=== PATIENT | female | born 1990 | race African-American/Black ===

== ENCOUNTER 2018-03-17 08:22 | Emergency (ER) | payer SELFPAY ==
--- NOTE | 2018-03-17 08:48 | ER ---
Nurse's Notes [facility] Name: Sudhakar uDong Age: 27 yrs Sex: Female : 1990 Arrival Date: 03/17/2018 Time: 08:25 Bed 15 Private MD: None, None Diagnosis: Dental caries Presentation: 03/17 08:32 Presenting complaint: Patient states: i went to the dentist last and i was Rx hj with amoxicillin and ibuprofen and been taking it since that day, bu my L lower tooth still aches;. Transition of care: patient was not received from another setting of care. Onset of symptoms was March 17, 2018. Risk Assessment: Do you want to hurt yourself or someone else? Patient reports no desire to harm self or others. Initial Sepsis Screen: Does the patient meet any 2 criteria? No. Patient's initial sepsis screen is negative. Does the patient have a suspected source of infection? No. Patient's initial sepsis screen is negative. Care prior to arrival: None. 08:32 Method Of Arrival: Ambulatory 08:32 Acuity: NEMESIO 4 Triage Assessment: 08:34 General: Appears in no apparent distress. uncomfortable, Behavior is calm, cooperative, hj appropriate for age. Pain: Complains of pain in L lower tooth. EENT: Reports pain in L lower tooth. 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 - Social history:: Smoking status: Patient/guardian denies using tobacco, Patient/guardian denies using alcohol. - Ebola Screening: : Patient negative for fever greater than or equal to 101.5 degrees Fahrenheit, and additional compatible Ebola Virus Disease symptoms Patient denies exposure to infectious person Patient denies travel to an Ebola-affected area in the 21 days before illness onset. - Family history:: not pertinent. Screenin:34 Abuse screen: Denies threats or abuse. Denies injuries from another. Nutritional hj screening: No deficits noted. Tuberculosis screening: No symptoms or risk factors identified. Fall Risk None identified. Assessment: 08:36 Reassessment: see triage for assessment;. Vital Signs: 08:35 BP 136 / 100; Pulse 93; Resp 18; Temp 99.0(O); Pulse Ox 99% on R/A; Weight 145.15 kg; hj Height 5 ft. 6 in. (167.64 cm); Pain 8/10; 08:56 BP 135 / 98; Pulse 92; Resp 18; Pulse Ox 100% on R/A; hj 08:35 Body Mass Index 51.65 (145.15 kg, 167.64 cm) ED Course: 08:25 Patient arrived in ED. dl4 08:26 None, None is Private Physician. dl4 08:30 Arvind Calabrese MD is Attending Physician. bubba 08:31 Gomez Cui, RN is Primary Nurse. hj 08:33 Triage completed. hj 08:35 Arm band placed on left wrist. hj 08:36 Patient has correct armband on for positive identification. Bed in low position. Call hj light in reach. Side rails up X 1. 08:48 Blaine Robison DDS is Referral Physician. bubba 08:56 No provider procedures requiring assistance completed. Patient did not have IV access hj during this emergency room visit. Administered Medications: No medications were administered Outcome: 08:48 Discharge ordered by . bubba 08:56 Discharged to home ambulatory. 08:56 Condition: stable 08:56 Discharge instructions given to patient, Instructed on discharge instructions, follow up and referral plans. medication usage, Demonstrated understanding of instructions, follow-up care, medications, Prescriptions given X 3. 08:57 Patient left the ED. Signatures: Arvind Calabrese MD MD cha Joaquin, Henry, RN RN Norm Paulino dl4
--- NOTE | 2018-03-17 08:48 | EDPHYS ---
Physician Documentation [facility] Name: Sudhakar Duong Age: 27 yrs Sex: Female : 1990 Arrival Date: 03/17/2018 Time: 08:25 Bed 15 Private MD: None, None ED Physician Arvind Calabrese HPI: 03/17 08:45 This 27 yrs old Black Female presents to ER via Ambulatory with complaints of Toothache.[facility] 08:45 The patient presents with broken tooth/teeth, pain. The problem is located in the lower bubba left second molar and lower left first molar. Onset: The symptoms/episode began/occurred 4 day(s) ago. Duration: The symptoms are continuous, and are steadily getting worse. Modifying factors: The symptoms are alleviated by nothing, the symptoms are aggravated by chewing. Associated signs and symptoms: The patient has no apparent associated signs or symptoms. Severity of symptoms: At their worst the symptoms were mild, moderate, in the emergency department the symptoms are unchanged. The patient has not experienced similar symptoms in the past. 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 - Social history:: Smoking status: Patient/guardian denies using tobacco, Patient/guardian denies using alcohol. - Ebola Screening: : Patient negative for fever greater than or equal to 101.5 degrees Fahrenheit, and additional compatible Ebola Virus Disease symptoms Patient denies exposure to infectious person Patient denies travel to an Ebola-affected area in the 21 days before illness onset. - Family history:: not pertinent. ROS: 08:45 Constitutional: Negative for fever, chills, and weight loss, Eyes: Negative for injury, bubba pain, redness, and discharge, Neck: Negative for injury, pain, and swelling, Cardiovascular: Negative for chest pain, palpitations, and edema, Respiratory: Negative for shortness of breath, cough, wheezing, and pleuritic chest pain, Abdomen/GI: Negative for abdominal pain, nausea, vomiting, diarrhea, and constipation, Back: Negative for injury and pain, : Negative for injury, bleeding, discharge, and swelling, MS/Extremity: Negative for injury and deformity, Skin: Negative for injury, rash, and discoloration, Neuro: Negative for headache, weakness, numbness, tingling, and seizure, Psych: Negative for depression, anxiety, suicide ideation, homicidal ideation, and hallucinations, Allergy/Immunology: Negative for hives, rash, and allergies, Endocrine: Negative for neck swelling, polydipsia, polyuria, polyphagia, and marked weight changes, Hematologic/Lymphatic: Negative for swollen nodes, abnormal bleeding, and unusual bruising. 08:45 ENT: Positive for dental pain. Exam: 08:45 Constitutional: This is a well developed, well nourished patient who is awake, alert, bubba and in no acute distress. Head/Face: Normocephalic, atraumatic. Eyes: Pupils equal round and reactive to light, extra-ocular motions intact. Lids and lashes normal. Conjunctiva and sclera are non-icteric and not injected. Cornea within normal limits. Periorbital areas with no swelling, redness, or edema. Neck: Trachea midline, no thyromegaly or masses palpated, and no cervical lymphadenopathy. Supple, full range of motion without nuchal rigidity, or vertebral point tenderness. No Meningismus. Chest/axilla: Normal chest wall appearance and motion. Nontender with no deformity. No lesions are appreciated. Cardiovascular: Regular rate and rhythm with a normal S1 and S2. No gallops, murmurs, or rubs. Normal PMI, no JVD. No pulse deficits. Respiratory: Lungs have equal breath sounds bilaterally, clear to auscultation and percussion. No rales, rhonchi or wheezes noted. No increased work of breathing, no retractions or nasal flaring. Abdomen/GI: Soft, non-tender, with normal bowel sounds. No distension or tympany. No guarding or rebound. No evidence of tenderness throughout. Back: No spinal tenderness. No costovertebral tenderness. Full range of motion. Skin: Warm, dry with normal turgor. Normal color with no rashes, no lesions, and no evidence of cellulitis. MS/ Extremity: Pulses equal, no cyanosis. Neurovascular intact. Full, normal range of motion. Neuro: Awake and alert, GCS 15, oriented to person, place, time, and situation. Cranial nerves II-XII grossly intact. Motor strength 5/5 in all extremities. Sensory grossly intact. Cerebellar exam normal. Normal gait. Psych: Awake, alert, with orientation to person, place and time. Behavior, mood, and affect are within normal limits. 08:45 ENT: Mouth: Oral mucosa: normal, Gums: reddened, Tongue: is normal, abscess, is not appreciated, drooling, is not appreciated. Vital Signs: 08:35 BP 136 / 100; Pulse 93; Resp 18; Temp 99.0(O); Pulse Ox 99% on R/A; Weight 145.15 kg; hj Height 5 ft. 6 in. (167.64 cm); Pain 8/10; 08:56 BP 135 / 98; Pulse 92; Resp 18; Pulse Ox 100% on R/A; hj 08:35 Body Mass Index 51.65 (145.15 kg, 167.64 cm) MDM: 08:31 Patient medically screened. [facility] 08:47 Data reviewed: vital signs, nurses notes. [facility] Administered Medications: No medications were administered Disposition: 03/17/18 08:48 Discharged to Home. Impression: Dental caries. - Condition is Stable. - Discharge Instructions: Dental Pain, Dental Pain, [id number]. - Prescriptions for Amoxicillin 500 mg Oral Capsule - take 1 capsule by ORAL route every 8 hours for 7 days; 21 tablet. Tylenol- Codeine #3 300-30 mg Oral Tablet - take 2 tablets by ORAL route every 6 hours As needed; 26 tablet. Motrin IB 200 mg Oral Tablet - take 2 tablet by ORAL route every 6 hours As needed as needed with food; 30 tablet. - Medication Reconciliation Form, Thank You Letter, Antibiotic Education, Prescription Opioid Use form. - Follow up: Private Physician; When: 2 - 3 days; Reason: Recheck today's complaints, Continuance of care, Re-evaluation by your physician. Follow up: Blaine Robison DDS; When: 2 - 3 days; Reason: Recheck today's complaints, Re-evaluation by your physician. - Problem is new. - Symptoms have improved. Signatures: Arvind Calabrese MD MD cha Joaquin, Henry, RN RN hj Corrections: (The following items were deleted from the chart) 08:57 08:48 03/17/2018 08:48 Discharged to Home. Impression: Dental caries. Condition is hj Stable. Forms are Medication Reconciliation Form, Thank You Letter, Antibiotic Education, Prescription Opioid Use. Follow up: Private Physician; When: 2 - 3 days; Reason: Recheck today's complaints, Continuance of care, Re-evaluation by your physician. Follow up: Blaine Robison; When: 2 - 3 days; Reason: Recheck today's complaints, Re-evaluation by your physician. Problem is new. Symptoms have improved. bubba
[2018-03-17 09:02] VITALS: TEMP 99
[2018-03-17 09:03] VITALS: BP 135/98; O2SAT 100
== END 2018-03-17 08:57 | disposition home or self-care (01) ==
LOC: ER 08:22
DX: K02.9 Dental caries, unspecified (principal)
CPT/HCPCS: 99282

== ENCOUNTER 2018-05-02 22:02 | Emergency (ER) | payer SELFPAY ==
[2018-05-02] MEDS ORDERED: ACETAMINOPHEN 500 MG TAB ONE (23:30)
--- NOTE | 2018-05-03 00:51 | EDPHYS ---
Physician Documentation [facility] Name: Sudhakar Duong Age: 27 yrs Sex: Female : 1990 Arrival Date: 05/02/2018 Time: 22:04 Bed Treatment Private MD: ED Physician Haris Guzman HPI: 05/02 23:45 This 27 yrs old Black Female presents to ER via Ambulatory with complaints of Flu cp Symptoms. 23:45 The patient or guardian reports cough, that is intermittent, flu symptoms, body aches, cp fever. 23:45 Onset: The symptoms/episode began/occurred yesterday. Associated signs and symptoms: cp Pertinent negatives: chest pain, diarrhea, sore throat, vomiting. Patient reports known exposure to influenza. Works at local [employer]. 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 - Social history:: Smoking status: Patient uses tobacco products, smokes one-half pack cigarettes per day. - Ebola Screening: : Patient negative for fever greater than or equal to 101.5 degrees Fahrenheit, and additional compatible Ebola Virus Disease symptoms. ROS: 05/03 00:00 Constitutional: Positive for body aches, fever, Negative for poor PO intake. cp 00:00 Eyes: Negative for injury, pain, redness, and discharge. cp 00:00 ENT: Positive for rhinorrhea, Negative for drainage from ear(s), ear pain, sore throat, difficulty swallowing, difficulty handling secretions. 00:00 Neck: Negative for pain with movement, pain at rest, stiffness. 00:00 Cardiovascular: Negative for chest pain. 00:00 Respiratory: Positive for cough, with no reported sputum, Negative for shortness of breath, wheezing. 00:00 Abdomen/GI: Negative for abdominal pain, nausea, vomiting, and diarrhea. 00:00 : Negative for urinary symptoms. 00:00 Skin: Negative for cellulitis, rash. 00:00 Neuro: Negative for altered mental status, headache, weakness. 00:00 All other systems are negative. Exam: 00:08 Constitutional: The patient appears in no acute distress, alert, awake, non-toxic, well cp developed, well nourished. 00:08 Head/Face: Normocephalic, atraumatic. cp 00:08 Eyes: Periorbital structures: appear normal, Conjunctiva: normal, no exudate, no injection, Lids and lashes: appear normal, bilaterally. 00:08 ENT: External ear(s): are unremarkable, Ear canal(s): are normal, clear, TM's: bulging, is not appreciated, bilaterally, dullness, bilaterally, erythema, is not appreciated, bilaterally, Nose: nasal drainage, that is clear, Mouth: Lips: moist, Oral mucosa: moist, Posterior pharynx: Airway: no evidence of obstruction, patent, Tonsils: no enlargement, no exudate, swelling, is not appreciated, erythema, that is mild, exudate, is not appreciated. 00:08 Neck: ROM/movement: is normal, is supple, no meningismus, no nuchal rigidity, Lymph nodes: no appreciated lymphadenopathy. 00:08 Chest/axilla: Inspection: normal, Palpation: is normal, no crepitus, no tenderness. 00:08 Cardiovascular: Rate: tachycardic, Rhythm: regular. 00:08 Respiratory: the patient does not display signs of respiratory distress, Respirations: normal, no use of accessory muscles, no retractions, no splinting, no tachypnea, labored breathing, is not present, Breath sounds: decreased breath sounds, are not appreciated, + upper airway congestion. wheezing: is not appreciated. 00:08 Abdomen/GI: Inspection: abdomen appears normal. 00:08 Back: pain, that is mild, of the diffuse, ROM is normal. 00:08 Skin: cellulitis, is not appreciated, no rash present. Vital Signs: 05/02 22:59 BP 144 / 90; Pulse 130; Resp 20; Temp 101.3(TE); Pulse Ox 95% on R/A; Pain 9/10; kl 05/03 01:18 Pulse 108; Resp 20; Temp 99.2(O); Pulse Ox 99% on R/A; fc MDM: 00:44 Patient medically screened. cp 00:50 Data reviewed: vital signs, nurses notes, lab test result(s). cp 00:50 Differential diagnosis: bronchitis, flu, URI. Antibiotic administration: Not indicated, cp the patient does not have an appreciated infiltrate. Counseling: I had a detailed discussion with the patient and/or guardian regarding: the historical points, exam findings, and any diagnostic results supporting the discharge/admit diagnosis, lab results, to return to the emergency department if symptoms worsen or persist or if there are any questions or concerns that arise at home. Response to treatment: the patient's symptoms have markedly improved after treatment, VSS. Fever resolved. Will treat with tamiflu for influenza, and as a result, I will discharge patient. 05/02 23:06 Order name: Flu mt 05/02 23:32 Order name: Influenza Screen (A EDMS Administered Medications: 05/02 23:21 Drug: Tylenol 1000 mg Route: PO; 05/03 01:18 Follow up: Response: No adverse reaction; Pain is unchanged, physician notified 01:02 Drug: Ibuprofen 800 mg Route: PO; :18 Follow up: Response: No adverse reaction; Medication administered at discharge. fc Disposition: 05/03/18 00:51 Discharged to Home. Impression: Influenza like illness. - Condition is Stable. - Discharge Instructions: Influenza, Adult. - Prescriptions for Ibuprofen 800 mg Oral Tablet - take 1 tablet by ORAL route every 8 hours As needed take with food; 30 tablet. Tamiflu 75 mg Oral Capsule - take 1 tablet by ORAL route every 12 hours for 5 days; 10 tablet. - Work release form, Medication Reconciliation Form, Thank You Letter, Antibiotic Education, Prescription Opioid Use form. - Follow up: Private Physician; When: 2 - 3 days; Reason: Recheck today's complaints. - Problem is new. - Symptoms have improved. Addendum: 05/04/2018 03:42 Co-signature as Attending Physician, Haris Guzman MD. g s Signatures: Dispatcher [employer] Fabienne Sauceda RN RN kl Chretien, Felicia, RN RN fc Page, Corey, PA PA cp Starr, Gregory, MD MD Corrections: (The following items were deleted from the chart) 05/03 01:20 00:51 05/03/2018 00:51 Discharged to Home. Impression: Influenza like illness. fc Condition is Stable. Forms are Medication Reconciliation Form, Thank You Letter, Antibiotic Education, Prescription Opioid Use. Follow up: Private Physician; When: 2 - 3 days; Reason: Recheck today's complaints. Problem is new. Symptoms have improved. cp
--- NOTE | 2018-05-03 00:51 | ER ---
Nurse's Notes [facility] Name: Sudhakar Duong Age: 27 yrs Sex: Female : 1990 Arrival Date: 05/02/2018 Time: 22:04 Bed Treatment Private MD: Diagnosis: Influenza like illness Presentation: 05/02 22:47 Presenting complaint: Patient states: cough fever x 2 days took mucinex today has had contact with a person positive for flu. 22:55 Transition of care: patient was not received from another setting of care. Onset of kl symptoms was May 01, 2018. Risk Assessment: Do you want to hurt yourself or someone else? Patient reports no desire to harm self or others. Initial Sepsis Screen: Does the patient meet any 2 criteria? Temp <36.0*C (96.8*F)) or > 38.3*C (100.9*F). Does the patient have a suspected source of infection? Yes: No. Patient's initial sepsis screen is negative. 22:55 Method Of Arrival: Ambulatory 22:55 Acuity: NEMESIO 5 05/03 01:19 Care prior to arrival: None. Triage Assessment: 05/02 22:57 General: Appears distressed, uncomfortable, obese, Behavior is calm, cooperative. Pain: Complains of pain in generalized Pain currently is 9 out of 10 on a pain scale. EENT: Nares with drainage noted. Neuro: No deficits noted. Respiratory: Reports shortness of breath on exertion cough that is productive. 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 - Social history:: Smoking status: Patient uses tobacco products, smokes one-half pack cigarettes per day. - Ebola Screening: : Patient negative for fever greater than or equal to 101.5 degrees Fahrenheit, and additional compatible Ebola Virus Disease symptoms. Screenin:49 Abuse screen: Denies threats or abuse. Nutritional screening: No deficits noted. Tuberculosis screening: No symptoms or risk factors identified. Fall Risk None identified. Assessment: 23:50 General: Appears uncomfortable, obese, Behavior is cooperative, appropriate for age, anxious. Pain: Complains of pain in body Quality of pain is described as aching, throbbing, Pain began 1 day ago. Is continuous. Neuro: Level of Consciousness is awake, alert, obeys commands, Oriented to person, place, time, situation, Appropriate for age. Cardiovascular: No deficits noted. Respiratory: Reports cough that is productive, pain with cough Breath sounds are clear bilaterally. the patient has mild shortness of breath. GI: No deficits noted. : No deficits noted. EENT: Nares with drainage noted Reports nasal congestion nasal discharge that is watery. Derm: Skin is pink, warm \T\ dry. Musculoskeletal: Circulation, motion, and sensation intact. Capillary refill < 3 seconds, Range of motion: intact in all extremities. Vital Signs: 22:59 BP 144 / 90; Pulse 130; Resp 20; Temp 101.3(TE); Pulse Ox 95% on R/A; Pain 9/10; 05/03 01:18 Pulse 108; Resp 20; Temp 99.2(O); Pulse Ox 99% on R/A; ED Course: 05/02 22:04 Patient arrived in ED. am2 22:56 Triage completed. 23:49 Arm band placed on Patient placed in an exam room, on a stretcher. 23:49 Patient has correct armband on for positive identification. Call light in reach. 23:49 No provider procedures requiring assistance completed. 05/03 00:44 [facility]fin [facility]. cp 00:44 Haris Guzman MD is Attending Physician. cp 01:20 Patient did not have IV access during this emergency room visit. Administered Medications: 05/02 23:21 Drug: Tylenol 1000 mg Route: PO; 05/03 01:18 Follow up: Response: No adverse reaction; Pain is unchanged, physician notified 01:02 Drug: Ibuprofen 800 mg Route: PO; 01:18 Follow up: Response: No adverse reaction; Medication administered at discharge. Outcome: 00:51 Discharge ordered by . cp 01:19 Discharged to home ambulatory, with family. 01:19 Condition: good 01:19 Discharge instructions given to patient, family, Instructed on discharge instructions, follow up and referral plans. medication usage, Staying hydrated and alternating Tylenol and Motrin Demonstrated understanding of instructions, follow-up care, medications, Hydration along with alternating Tylenol and Motrin Prescriptions given X 2. 01:20 Patient left the ED. fc Signatures: Fabienne Pryor RN Nidhi Jorgensen RN RN fc Page, Corey, PA PA cp Moreno, Amanda am2
[2018-05-03] MEDS ORDERED: IBUPROFEN 400 MG TAB ONE (01:12)
[2018-05-03 03:11] VITALS: BP 144/90
[2018-05-03 03:14] VITALS: TEMP 99.2; O2SAT 99
== END 2018-05-03 01:20 | disposition home or self-care (01) ==
LOC: ER 22:02
DX: J11.1 Influenza due to unidentified influenza virus with other respiratory manifestations (principal); I10 Essential (primary) hypertension; F17.210 Nicotine dependence, cigarettes, uncomplicated
CPT/HCPCS: 87804; 99283

== ENCOUNTER 2018-06-09 16:22 | Emergency (ER) | payer SELFPAY ==
--- NOTE | 2018-06-09 17:27 | EDPHYS ---
Physician Documentation [facility] Name: Sudhakar Duong Age: 27 yrs Sex: Female : 1990 Arrival Date: 06/09/2018 Time: 16:26 Bed 10 Private MD: None, None ED Physician Jus Wlof HPI: 06/09 17:24 This 27 yrs old Black Female presents to ER via Wheelchair with complaints of Knee kb Injury. 17:25 The patient presents with decreased range of motion, an injury, pain, that is acute. kb The complaints affect the left knee. Context: The problem was sustained at home, resulted from twisting of the extremity, the patient can fully bear weight, the patient is able to ambulate. Onset: The symptoms/episode began/occurred 2 day(s) ago. Modifying factors: The symptoms are alleviated by nothing. the symptoms are aggravated by movement, weight bearing, bending knee. Associated signs and symptoms: The patient has no apparent associated signs or symptoms. Treatment prior to arrival includes: no previous treatment. Severity of symptoms: At their worst the symptoms were moderate, in the emergency department the symptoms are unchanged. The patient has not experienced similar symptoms in the past. The patient has not recently seen a physician. Pt reports she twisted her knee 2 days ago and has had pain since then. Reports pain with bending knee and bearing weight. . 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 - Social history:: Smoking status: Patient uses tobacco products, smokes one-half pack cigarettes per day. - Ebola Screening: : No symptoms or risks identified at this time. ROS: 17:21 Constitutional: Negative for fever, chills, and weight loss, Cardiovascular: Negative kb for chest pain, palpitations, and edema, Respiratory: Negative for shortness of breath, cough, wheezing, and pleuritic chest pain, Abdomen/GI: Negative for abdominal pain, nausea, vomiting, diarrhea, and constipation, : Negative for injury, bleeding, discharge, and swelling, Skin: Negative for injury, rash, and discoloration, Neuro: Negative for headache, weakness, numbness, tingling, and seizure. 17:21 MS/extremity: Positive for decreased range of motion, pain, of the left knee. Exam: 17:21 Constitutional: This is a well developed, well nourished patient who is awake, alert, kb and in no acute distress. Head/Face: Normocephalic, atraumatic. Chest/axilla: Normal chest wall appearance and motion. Nontender with no deformity. No lesions are appreciated. Cardiovascular: Regular rate and rhythm with a normal S1 and S2. No gallops, murmurs, or rubs. Normal PMI, no JVD. No pulse deficits. Respiratory: Lungs have equal breath sounds bilaterally, clear to auscultation and percussion. No rales, rhonchi or wheezes noted. No increased work of breathing, no retractions or nasal flaring. Abdomen/GI: Soft, non-tender, with normal bowel sounds. No distension or tympany. No guarding or rebound. No evidence of tenderness throughout. Skin: Warm, dry with normal turgor. Normal color with no rashes, no lesions, and no evidence of cellulitis. Neuro: Awake and alert, GCS 15, oriented to person, place, time, and situation. Cranial nerves II-XII grossly intact. Motor strength 5/5 in all extremities. Sensory grossly intact. Cerebellar exam normal. Normal gait. 17:21 Musculoskeletal/extremity: Extremities: grossly normal except: noted in the left knee: pain, ROM: limited active range of motion due to pain, in the left knee, Sensation intact. Weight bearing: able to fully bear weight. Vital Signs: 16:38 Resp 16; Temp 97.6; Pulse Ox 98% on R/A; Weight 138.35 kg; Height 5 ft. 6 in. (167.64 la1 cm); Pain 8/10; 16:39 BP 135 / 98; la1 16:38 Body Mass Index 49.23 (138.35 kg, 167.64 cm) la1 MDM: 16:56 Patient medically screened. kb 17:21 Data reviewed: vital signs, nurses notes. Data interpreted: Pulse oximetry: on room air kb is 98 %. Interpretation: normal. Counseling: I had a detailed discussion with the patient and/or guardian regarding: the historical points, exam findings, and any diagnostic results supporting the discharge/admit diagnosis, radiology results, the need for outpatient follow up, a family practitioner, to return to the emergency department if symptoms worsen or persist or if there are any questions or concerns that arise at home. 06/09 16:39 Order name: Knee Left 3 View XRAY; Complete Time: 17:33 la1 06/09 17:21 Order name: [place] Wrap; Complete Time: 17:54 kb 06/09 17:21 Order name: Crutches; Complete Time: 17:55 kb Administered Medications: No medications were administered Disposition: 18:49 Co-signature as Attending Physician, Jus Wolf MD. rn Disposition: 06/09/18 17:27 Discharged to Home. Impression: Pain in left knee. - Condition is Stable. - Discharge Instructions: Knee Pain, [id number]. - Prescriptions for Diclofenac Sodium 75 mg Oral Tablet, Delayed Release (E.C.) - take 1 tablet by ORAL route 2 times per day As needed; 30 tablet. - Medication Reconciliation Form, Thank You Letter, Antibiotic Education, Prescription Opioid Use, Work release form form. - Follow up: Emergency Department; When: As needed; Reason: Worsening of condition. Follow up: Private Physician; When: 2 - 3 days; Reason: Recheck today's complaints, Continuance of care, Re-evaluation by your physician. Signatures: Dispatcher [employer] EDNadeen Cook, ENVIRONMENTAL MONITORING TECHNICIAN-C ENVIRONMENTAL MONITORING TECHNICIAN-Ckb Herlinda Nagy RN RN iw Nieto, Roman, MD MD rn Attema, Lee, RN RN la1 Corrections: (The following items were deleted from the chart) 17:23 17:21 MS/extremity: Positive for pain, of the left knee, [facility] 17:24 17:21 Musculoskeletal/extremity: Extremities: grossly normal except: noted in the left kb knee: pain, kb 18:09 17:27 06/09/2018 17:27 Discharged to Home. Impression: Pain in left knee. Condition is iw Stable. Forms are Medication Reconciliation Form, Thank You Letter, Antibiotic Education, Prescription Opioid Use. Follow up: Emergency Department; When: As needed; Reason: Worsening of condition. Follow up: Private Physician; When: 2 - 3 days; Reason: Recheck today's complaints, Continuance of care, Re-evaluation by your physician. kb
--- NOTE | 2018-06-09 17:27 | ER ---
Nurse's Notes [facility] Name: Sudhakar Duong Age: 27 yrs Sex: Female : 1990 Arrival Date: 06/09/2018 Time: 16:26 Bed 10 Private MD: None, None Diagnosis: Pain in left knee Presentation: 06/09 16:36 Presenting complaint: Patient states: I was rough housing with my cousins two days ago la1 and my left knee went one way and the rest of my leg went the other way. Transition of care: patient was not received from another setting of care. Onset of symptoms was June 09, 2018. Risk Assessment: Do you want to hurt yourself or someone else? Patient reports no desire to harm self or others. Initial Sepsis Screen: Does the patient meet any 2 criteria? No. Patient's initial sepsis screen is negative. Does the patient have a suspected source of infection? No. Patient's initial sepsis screen is negative. Care prior to arrival: None. 16:36 Method Of Arrival: Wheelchair la1 16:36 Acuity: NEMESIO 4 la1 Triage Assessment: 18:00 General: Appears in no apparent distress. Behavior is calm, cooperative. Injury iw Description:. 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 - Social history:: Smoking status: Patient uses tobacco products, smokes one-half pack cigarettes per day. - Ebola Screening: : No symptoms or risks identified at this time. Screenin:00 Abuse screen: Denies threats or abuse. Denies injuries from another. Nutritional iw screening: No deficits noted. Tuberculosis screening: No symptoms or risk factors identified. Fall Risk None identified. Assessment: 17:00 General: Appears in no apparent distress. comfortable, Behavior is calm. Pain: iw Complains of pain in left knee. Neuro: Level of Consciousness is awake, alert, obeys commands, Moves all extremities. Cardiovascular: Patient's skin is warm and dry. Respiratory: Respiratory effort is even, unlabored, Respiratory pattern is regular. Derm: Skin is intact, is healthy with good turgor. Musculoskeletal: Range of motion: limited in left knee. Vital Signs: 16:38 Resp 16; Temp 97.6; Pulse Ox 98% on R/A; Weight 138.35 kg; Height 5 ft. 6 in. (167.64 la1 cm); Pain 8/10; 16:39 BP 135 / 98; la1 16:38 Body Mass Index 49.23 (138.35 kg, 167.64 cm) la1 ED Course: 16:26 Patient arrived in ED. mr 16:26 None, None is Private Physician. mr 16:37 Triage completed. la1 16:37 Arm band placed on left wrist. la1 16:43 Nadeen Lorenzo FNP-C is PHCP. kb 16:44 Jus Wolf MD is Attending Physician. kb 16:54 Herlinda Nagy, RN is Primary Nurse. iw 17:00 Patient has correct armband on for positive identification. iw 17:17 Knee Left 3 View XRAY In Process Unspecified. EDMS 18:08 No provider procedures requiring assistance completed. Patient did not have IV access iw during this emergency room visit. Administered Medications: No medications were administered Outcome: 17:27 Discharge ordered by MD. kb 18:08 Discharged to home ambulatory, with crutches, with family. iw 18:08 Condition: good 18:08 Discharge instructions given to patient, family, Instructed on discharge instructions, follow up and referral plans. medication usage, Demonstrated understanding of instructions, follow-up care, medications, Prescriptions given X 1. 18:09 Patient left the ED. iw Signatures: Dispatcher [employer] EDCT Nadeen Lorenzo FNP-C FNP-Ckb RiveraAngella mr Herlinda Nagy, RN CHLOE Noe Meraz RN RN la1
--- NOTE | 2018-06-09 17:29 | RAD REPORT ---
EXAM DESCRIPTION: RAD - Knee Left 3 View - 06/09/2018 5:16 pm CLINICAL HISTORY: Knee pain COMPARISON: None. FINDINGS: No fracture, dislocation or periosteal reaction.Minimal joint effusion present. No joint s pace narrowing. No soft tissue abnormality. IMPRESSION: No acute bone finding. Minimal joint effusion. Clinical concerns for internal derangement or occult bony injury could be further assessed with MR im aging.
[2018-06-09 18:26] VITALS: TEMP 97.6; O2SAT 98
[2018-06-09 18:27] VITALS: BP 135/98
== END 2018-06-09 18:09 | disposition home or self-care (01) ==
LOC: ER 16:22
DX: M25.562 Pain in left knee (principal); I10 Essential (primary) hypertension; F17.210 Nicotine dependence, cigarettes, uncomplicated
CPT/HCPCS: 99283

== ENCOUNTER 2018-12-14 07:51 | Emergency (ER) | payer SELFPAY ==
[2018-12-14] MEDS ORDERED: METOCLOPRAMIDE 10 MG/2mL INJ ONE (08:29)
[2018-12-14] MEDS ORDERED: DIPHENHYDRAMINE 50 MG/ML VIAL ONE (08:30)
--- NOTE | 2018-12-14 09:15 | ER ---
Nurse's Notes [facility] Name: Sudhakar Duong Age: 28 yrs Sex: Female : 1990 Arrival Date: 12/14/2018 Time: 07:52 Bed 15 Private MD: None, None Diagnosis: Essential (primary) hypertension;Headache Presentation: 12/14 07:53 Presenting complaint: Patient states: "I was at work feeling dizzy and my head was aa5 pounding so the nurse took my blood pressure and it was 130 and they gave me metoprolol 25mg and we waiting an hour and then it was 198/160 and they gave me Clonidine about 20 minutes ago". Pt states "the only time I had high blood pressure was with the twins about 17 months ago". 07:53 Transition of care: patient was not received from another setting of care. Onset of aa5 symptoms was December 14, 2018. Risk Assessment: Do you want to hurt yourself or someone else? Patient reports no desire to harm self or others. Initial Sepsis Screen: Does the patient meet any 2 criteria? No. Patient's initial sepsis screen is negative. Does the patient have a suspected source of infection? No. Patient's initial sepsis screen is negative. Care prior to arrival: see triage note. 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 - Social history:: Smoking status: Patient uses tobacco products, smokes one-half pack cigarettes per day. - Ebola Screening: : No symptoms or risks identified at this time. Screenin:55 Abuse screen: Denies threats or abuse. Nutritional screening: No deficits noted. rb1 Tuberculosis screening: No symptoms or risk factors identified. Fall Risk None identified. Assessment: 07:55 General: Appears in no apparent distress. comfortable, obese, Behavior is calm, rb1 cooperative, Denies fever. Pain: Complains of pain in head Pain currently is 8 out of 10 on a pain scale. Pain began this morning. Neuro: Level of Consciousness is awake, alert, obeys commands, Oriented to person, place, time, situation. Neuro: Reports blurred vision dizziness, headache frontal area, tingling in bilateral hands and fingers.. Cardiovascular: Denies chest pain, Capillary refill < 3 seconds is brisk in bilateral fingers. Respiratory: Airway is patent Respiratory effort is even, unlabored, Respiratory pattern is regular, symmetrical. GI: No signs and/or symptoms were reported involving the gastrointestinal system. : No signs and/or symptoms were reported regarding the genitourinary system. Derm: Skin is dry, Skin is normal, Skin temperature is warm. Musculoskeletal: Range of motion: intact in all extremities. 07:55 General: PT. reports she was given Metoprolol and Clonidine at [place] where she works [employer] before coming to the hospital.. 08:55 Reassessment: Patient appears in no apparent distress at this time. No changes from [employer] previously documented assessment. 09:52 Reassessment: Patient appears in no apparent distress at this time. Patient and/or rb1 family updated on plan of care and expected duration. Pain level reassessed. Patient is alert, oriented x 3, equal unlabored respirations, skin warm/dry/pink. Pain 3/10 Patient states symptoms have improved. Vital Signs: 07:54 BP 167 / 118; Pulse 86; Resp 18 S; Temp 98.3(TE); Pulse Ox 97% on R/A; Weight 140.61 kg aa5 (R); Height 5 ft. 6 in. (167.64 cm) (R); Pain 8/10; 08:50 BP 126 / 100; Pulse 77; Resp 16; Pulse Ox 97% on R/A; Pain 8/10; rb1 09:50 BP 124 / 80; Pulse 77; Resp 17; Temp 98.5(O); Pulse Ox 97% ; Pain 3/10; rb1 07:54 Body Mass Index 50.03 (140.61 kg, 167.64 cm) aa5 ED Course: 07:52 Patient arrived in ED. ag5 07:52 None, None is Private Physician. ag5 07:53 Isauro Freeman PA is PHCP. jr8 07:53 Jus Wolf MD is Attending Physician. jr8 07:53 Arm band placed on Patient placed in an exam room, on a stretcher. aa5 07:55 Patient has correct armband on for positive identification. Bed in low position. Call rb1 light in reach. Side rails up X 1. monitoring analyst on. Pulse ox on. NIBP on. Warm blanket given. 08:02 Triage completed. aa5 08:28 Latrice Mayberry, RN is Primary Nurse. rb1 08:38 Inserted saline lock: 22 gauge in right antecubital area, using aseptic technique. rb1 09:55 No provider procedures requiring assistance completed. IV discontinued, intact, rb1 bleeding controlled, No redness/swelling at site. Pressure dressing applied. Administered Medications: 08:38 Drug: Benadryl 25 mg Route: IVP; Site: right antecubital; rb1 08:38 Drug: Reglan 10 mg Route: IVP; Site: right antecubital; rb1 Outcome: 09:14 Discharge ordered by . jr8 09:55 Discharged to home ambulatory. rb1 09:55 Condition: stable 09:55 Discharge instructions given to patient, Instructed on discharge instructions, follow up and referral plans. Demonstrated understanding of instructions, follow-up care, Prescriptions given X none 09:59 Patient left the ED. rb1 Signatures: Felicita Boyd, RN RN aa5 Isauro Freeman PA PA jr8 Latrice Mayberry, RN RN rb1 Gisselle Bryant 5
--- NOTE | 2018-12-14 09:15 | EDPHYS ---
Physician Documentation [facility] Name: Sudhakar Duong Age: 28 yrs Sex: Female : 1990 Arrival Date: 12/14/2018 Time: 07:52 Bed 15 Private MD: None, None ED Physician Jus Wolf HPI: 12/14 08:14 This 28 yrs old Black Female presents to ER via Ambulatory with complaints of High jr8 Blood Pressure. 08:14 The patient has elevated blood pressure and discovered this at work. Onset: The jr8 symptoms/episode began/occurred this morning. Associated signs and symptoms: Pertinent positives: dizziness, headache, Pertinent negatives: chest pain, nausea, vomiting, weakness. Severity of symptoms: At its worst the blood pressure was 167 mm Hg, in the emergency department the blood pressure is improved. Pt was at work, had a DENNISON, went to nurse, BP was "high" so they gave her 25mg metoprolol and rechecked it in an hour, still "high" so they gave 0.2mg of clonidine. 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 - Social history:: Smoking status: Patient uses tobacco products, smokes one-half pack cigarettes per day. - Ebola Screening: : No symptoms or risks identified at this time. ROS: 08:14 Constitutional: Negative for fever, chills, and weight loss, Eyes: Negative for injury, jr8 pain, redness, and discharge, ENT: Negative for injury, pain, and discharge, Neck: Negative for injury, pain, and swelling, Cardiovascular: Negative for chest pain, palpitations, and edema, Respiratory: Negative for shortness of breath, cough, wheezing, and pleuritic chest pain, Abdomen/GI: Negative for abdominal pain, nausea, vomiting, diarrhea, and constipation, Back: Negative for injury and pain, Skin: Negative for injury, rash, and discoloration. 08:14 Neuro: Positive for dizziness, headache. Exam: 08:14 Constitutional: This is a well developed, well nourished patient who is awake, alert, jr8 and in no acute distress. Head/Face: Normocephalic, atraumatic. Eyes: Pupils equal round and reactive to light, extra-ocular motions intact. Lids and lashes normal. Conjunctiva and sclera are non-icteric and not injected. Cornea within normal limits. Periorbital areas with no swelling, redness, or edema. ENT: Nares patent. No nasal discharge, no septal abnormalities noted. Tympanic membranes are normal and external auditory canals are clear. Oropharynx with no redness, swelling, or masses, exudates, or evidence of obstruction, uvula midline. Mucous membranes moist. Neck: Trachea midline, no thyromegaly or masses palpated, and no cervical lymphadenopathy. Supple, full range of motion without nuchal rigidity, or vertebral point tenderness. No Meningismus. Chest/axilla: Normal chest wall appearance and motion. Nontender with no deformity. No lesions are appreciated. Cardiovascular: Regular rate and rhythm with a normal S1 and S2. No gallops, murmurs, or rubs. Normal PMI, no JVD. No pulse deficits. Respiratory: Lungs have equal breath sounds bilaterally, clear to auscultation and percussion. No rales, rhonchi or wheezes noted. No increased work of breathing, no retractions or nasal flaring. Abdomen/GI: Soft, non-tender, with normal bowel sounds. No distension or tympany. No guarding or rebound. No evidence of tenderness throughout. Back: No spinal tenderness. No costovertebral tenderness. Full range of motion. Skin: Warm, dry with normal turgor. Normal color with no rashes, no lesions, and no evidence of cellulitis. MS/ Extremity: Pulses equal, no cyanosis. Neurovascular intact. Full, normal range of motion. 08:14 Neuro: Orientation: is normal, Mentation: is normal, Cranial nerves: CN II- XII are normal as tested, visual simons are intact. extraocular movements are intact, Cerebellar function: normal finger to nose testing, Motor: is normal, Sensation: is normal, Gait: is steady. Vital Signs: 07:54 BP 167 / 118; Pulse 86; Resp 18 S; Temp 98.3(TE); Pulse Ox 97% on R/A; Weight 140.61 kg aa5 (R); Height 5 ft. 6 in. (167.64 cm) (R); Pain 8/10; 08:50 BP 126 / 100; Pulse 77; Resp 16; Pulse Ox 97% on R/A; Pain 8/10; rb1 09:50 BP 124 / 80; Pulse 77; Resp 17; Temp 98.5(O); Pulse Ox 97% ; Pain 3/10; rb1 07:54 Body Mass Index 50.03 (140.61 kg, 167.64 cm) aa5 MDM: 07:53 Patient medically screened. jr8 09:10 Data reviewed: vital signs, nurses notes, EKG, and as a result, I will discharge jr8 patient. Data interpreted: Pulse oximetry: on room air is 97 %. Interpretation: normal. Counseling: I had a detailed discussion with the patient and/or guardian regarding: the historical points, exam findings, and any diagnostic results supporting the discharge/admit diagnosis, the presence of at least one elevated blood pressure reading (>120/80) during this emergency department visit, the need for outpatient follow up, a family practitioner. ED course: Pt DENNISON significantly improved and BP is down to 117 systolic. Pt states she feels much better. Normal neurological exam. Pt to FU with PCP for BP recheck. . 12/14 08:14 Order name: EKG; Complete Time: 08:14 8 10 08:14 Order name: EKG - Nurse/Tech; Complete Time: 08:28 8 12/14 08:14 Order name: SL; Complete Time: 08:47 Administered Medications: 08:38 Drug: Benadryl 25 mg Route: IVP; Site: right antecubital; rb1 08:38 Drug: Reglan 10 mg Route: IVP; Site: right antecubital; rb1 Disposition: 10:09 Co-signature as Attending Physician, Jus Wolf MD. rn Disposition: 12/14/18 09:14 Discharged to Home. Impression: Essential (primary) hypertension, Headache. - Condition is Stable. - Discharge Instructions: General Headache Without Cause, Hypertension. - Medication Reconciliation Form, Thank You Letter form. - Follow up: Private Physician; When: 1 week; Reason: Recheck today's complaints, Re-evaluation by your physician. - Problem is new. - Symptoms are resolved. Signatures: Jus Wolf MD MD rn Calderon, Audri RN RN aa5 Isauro Freeman PA PA jr8 Latrice Mayberry, RN RN rb1 Corrections: (The following items were deleted from the chart) 09:59 09:14 12/14/2018 09:14 Discharged to Home. Impression: Essential (primary) rb1 hypertension; Headache. Condition is Stable. Forms are Medication Reconciliation Form, Thank You Letter, Antibiotic Education, Prescription Opioid Use. Follow up: Private Physician; When: 1 week; Reason: Recheck today's complaints, Re-evaluation by your physician. Problem is new. Symptoms are resolved. jr8
[2018-12-14 10:04] VITALS: BP 167/118; TEMP 98.3; O2SAT 97
--- NOTE | 2018-12-15 06:18 | EKG ---
Test Date: 2018-12-14 Test Time: 08:22:40 Java Software: SAHIL MEASUREMENT RESULTS: Intervals: Rate: 72 DE: 170 QRSD: 100 QT: 422 QTc: 462 Ben Bolt: P: 36 DE: 170 QRS: 22 T: 21 INTERPRETIVE STATEMENTS: Normal sinus rhythm normal ECG No previous ECG available for comparison Electronically Signed On 12-15-18 06:17:55 CDT by Black Kim
== END 2018-12-14 09:59 | disposition home or self-care (01) ==
LOC: ER 07:51
DX: I10 Essential (primary) hypertension (principal); R51 Headache; F17.210 Nicotine dependence, cigarettes, uncomplicated
CPT/HCPCS: 93005; 96374; 96375; 99284; J1200; J2765

== ENCOUNTER 2019-11-15 19:56 | Emergency (ER) | payer SELFPAY ==
[2019-11-15] MEDS ORDERED: KETOROLAC 30 MG/ML INJ ONE (20:18)
--- NOTE | 2019-11-15 21:18 | ER ---
Nurse's Notes [facility] Name: Sudhakar Duong Age: 29 yrs Sex: Female : 1990 Arrival Date: 11/15/2019 Time: 19:59 Bed 5 Private MD: Diagnosis: Hypertensive urgency;Headache Presentation: 11/14 20:00 Chief complaint: Patient states: Headache that began 45 min ago with light sensitivity; lp1 states having a nose bleed; Hx of HTN; States aunt took BP at home and was reading 200/130. 20:00 Coronavirus screen: Client denies travel out of the [place] in the last 14 days. At this lp1 time, the client does not indicate any symptoms associated with coronavirus-19. Ebola Screen: No symptoms or risks identified at this time. Initial Sepsis Screen: Does the patient meet any 2 criteria? No. Patient's initial sepsis screen is negative. Does the patient have a suspected source of infection? No. Patient's initial sepsis screen is negative. Risk Assessment: Do you want to hurt yourself or someone else? Patient reports no desire to harm self or others. Onset of symptoms was November 15, 2019. 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 - Social history:: Smoking status: Patient reports the use of cigarette tobacco products, smokes one-half pack cigarettes per day. Screenin:11 Abuse screen: Denies threats or abuse. Denies injuries from another. Nutritional lp1 screening: No deficits noted. Tuberculosis screening: No symptoms or risk factors identified. Fall Risk None identified. Assessment: 20:11 General: Appears in no apparent distress. comfortable, Behavior is calm, cooperative. mg2 Pain: Complains of pain in frontal head Pain does not radiate. Pain currently is 8 out of 10 on a pain scale. Quality of pain is described as aching, Pain began gradually, Is intermittent. Neuro: Level of Consciousness is awake, alert, obeys commands, Oriented to person, place, time, situation. Neuro: Reports headache frontal area. Cardiovascular: Capillary refill < 3 seconds Patient's skin is warm and dry. Respiratory: Airway is patent Respiratory effort is even, unlabored, Respiratory pattern is regular, symmetrical. GI: No signs and/or symptoms were reported involving the gastrointestinal system. : No signs and/or symptoms were reported regarding the genitourinary system. EENT: No signs and/or symptoms were reported regarding the EENT system. Derm: Skin is intact, is healthy with good turgor, Skin is pink, warm \T\ dry. normal. Musculoskeletal: Circulation, motion, and sensation intact. Capillary refill < 3 seconds. 20:53 Reassessment: Patient appears in no apparent distress at this time. Patient and/or mg2 family updated on plan of care and expected duration. Pain level reassessed. Patient is alert, oriented x 3, equal unlabored respirations, skin warm/dry/pink. 21:19 Reassessment: patient refused CT scan because she is claustrophobic and she feels mg2 better after the toradol and her blood pressure is better Patient denies pain at this time. Patient states feeling better. Patient states symptoms have improved. Vital Signs: 20:00 BP 163 / 111; Pulse 87; Resp 20; Temp 99(TE); Pulse Ox 99% on R/A; Weight 141.52 kg lp1 (R); Height 5 ft. 6 in. (167.64 cm); Pain 10/10; 20:00 BP 150 / 102; Pulse 89; Resp 17 S; Pulse Ox 99% on R/A; ca1 20:49 BP 145 / 96; Pulse 87; Resp 16 S; Pulse Ox 97% on R/A; ca1 21:11 BP 128 / 99; Pulse 82; Resp 18; Pulse Ox 98% on R/A; ea 20:00 Body Mass Index 50.36 (141.52 kg, 167.64 cm) lp1 Amador Coma Score: 21:39 Eye Response: spontaneous(4). Verbal Response: oriented(5). Motor Response: obeys tw4 commands(6). Total: 15. ED Course: 19:59 Patient arrived in ED. mg2 20:00 Ead Bonilla, CHLOE is Primary Nurse. ca1 20:07 Kevin Koch MD is Attending Physician. tw4 20:09 Triage completed. lp1 20:09 Arm band placed on. lp1 20:12 Patient has correct armband on for positive identification. Pulse ox on. NIBP on. Door mg2 closed. Warm blanket given. 20:12 No provider procedures requiring assistance completed. Inserted saline lock: 20 gauge mg2 in right antecubital area, using aseptic technique. 21:20 IV discontinued, intact, bleeding controlled, No redness/swelling at site. Pressure mg2 dressing applied. Administered Medications: 20:11 Drug: TORadol 30 mg Route: IVP; Site: right antecubital; mg2 20:54 Follow up: Response: No adverse reaction mg2 21:19 Not Given (Hemodynamic Parameters): hydrALAZINE 10 mg IV at per protocol once mg2 Outcome: 21:18 Discharge ordered by . tw4 21:21 Discharged to home ambulatory. mg2 21:21 Condition: stable 21:21 Discharge instructions given to patient, Instructed on discharge instructions, follow up and referral plans. medication usage, Demonstrated understanding of instructions, follow-up care, medications, Prescriptions given X 2. 21:27 Patient left the ED. mg2 Signatures: Sandhya Snell RN RN lp1 Erlinda Abbott RN Kevin Martinez ea, MD MD tw4 Kelton Retana, CHLOE RN mg2 Eda Bonilla RN RN ca1
--- NOTE | 2019-11-15 21:18 | EDPHYS ---
Physician Documentation [facility] Name: Sudhakar Duong Age: 29 yrs Sex: Female : 1990 Arrival Date: 11/15/2019 Time: 19:59 Bed 5 Private MD: ED Physician Kevin Koch HPI: 11/14 21:39 This 29 yrs old Black Female presents to ER via EMS with complaints of headache. tw4 21:39 The patient complains of pain to the forehead. The patient describes the headache as tw4 aching. Onset: The symptoms/episode began/occurred just prior to arrival, today. Associated signs and symptoms: The patient has no apparent associated signs or symptoms. Severity of symptoms: At its worst the pain was moderate. The symptoms are alleviated by nothing. the symptoms are aggravated by nothing. The patient has not experienced similar symptoms in the past. 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 - Social history:: Smoking status: Patient reports the use of cigarette tobacco products, smokes one-half pack cigarettes per day. ROS: 21:39 Constitutional: Negative for fever, chills, and weight loss, Eyes: Negative for injury, tw4 pain, redness, and discharge, Cardiovascular: Negative for chest pain, palpitations, and edema, Respiratory: Negative for shortness of breath, cough, wheezing, and pleuritic chest pain, Abdomen/GI: Negative for abdominal pain, nausea, vomiting, diarrhea, and constipation, Back: Negative for injury and pain, MS/Extremity: Negative for injury and deformity, Skin: Negative for injury, rash, and discoloration. 21:39 Neuro: Positive for headache, Negative for altered mental status, dizziness, gait disturbance, seizure activity, syncope, near syncope, tinnitus, tremor, visual changes. Exam: 21:39 Constitutional: This is a well developed, well nourished patient who is awake, alert, tw4 and in no acute distress. Head/Face: Normocephalic, atraumatic. Chest/axilla: Normal chest wall appearance and motion. Nontender with no deformity. No lesions are appreciated. Cardiovascular: Regular rate and rhythm with a normal S1 and S2. No gallops, murmurs, or rubs. Normal PMI, no JVD. No pulse deficits. Respiratory: Lungs have equal breath sounds bilaterally, clear to auscultation and percussion. No rales, rhonchi or wheezes noted. No increased work of breathing, no retractions or nasal flaring. Abdomen/GI: Soft, non-tender, with normal bowel sounds. No distension or tympany. No guarding or rebound. No evidence of tenderness throughout. Back: No spinal tenderness. No costovertebral tenderness. Full range of motion. MS/ Extremity: Pulses equal, no cyanosis. Neurovascular intact. Full, normal range of motion. Neuro: Awake and alert, GCS 15, oriented to person, place, time, and situation. Cranial nerves II-XII grossly intact. Motor strength 5/5 in all extremities. Sensory grossly intact. Cerebellar exam normal. Normal gait. Vital Signs: 20:00 BP 163 / 111; Pulse 87; Resp 20; Temp 99(TE); Pulse Ox 99% on R/A; Weight 141.52 kg lp1 (R); Height 5 ft. 6 in. (167.64 cm); Pain 10/10; 20:00 BP 150 / 102; Pulse 89; Resp 17 S; Pulse Ox 99% on R/A; ca1 20:49 BP 145 / 96; Pulse 87; Resp 16 S; Pulse Ox 97% on R/A; ca1 21:11 BP 128 / 99; Pulse 82; Resp 18; Pulse Ox 98% on R/A; ea 20:00 Body Mass Index 50.36 (141.52 kg, 167.64 cm) lp1 [place] Coma Score: 21:39 Eye Response: spontaneous(4). Verbal Response: oriented(5). Motor Response: obeys tw4 commands(6). Total: 15. MDM: 20:07 Patient medically screened. tw4 21:39 Differential diagnosis: hypertensive headache, migraine, sinusitis, tension headache. tw4 Data reviewed: vital signs, nurses notes. Counseling: I had a detailed discussion with the patient and/or guardian regarding: the historical points, exam findings, and any diagnostic results supporting the discharge/admit diagnosis. Medication response: Special discussion: I discussed with the patient/guardian in detail that at this point there is no indication for admission to the hospital. It is understood, however, that if the symptoms persist or worsen the patient needs to return immediately for re-evaluation. Administered Medications: 20:11 Drug: TORadol 30 mg Route: IVP; Site: right antecubital; mg2 20:54 Follow up: Response: No adverse reaction mg2 21:19 Not Given (Hemodynamic Parameters): hydrALAZINE 10 mg IV at per protocol once mg2 Disposition: 11/15/19 21:18 Discharged to Home. Impression: Hypertensive urgency, Headache. - Condition is Stable. - Discharge Instructions: Tension Headache, Adult, Hypertension. - Prescriptions for Ibuprofen 800 mg Oral Tablet - take 1 tablet by ORAL route every 12 hours As needed take with food; 20 tablet. Norvasc 5 mg Oral Tablet - take 1 tablet by ORAL route once daily; 20 tablet. - Medication Reconciliation Form, Thank You Letter, Antibiotic Education, Prescription Opioid Use form. - Follow up: Private Physician; When: Upon discharge from the Emergency Department; Reason: Recheck today's complaints, Continuance of care, Re-evaluation by your physician. - Problem is new. - Symptoms have improved. Signatures: Dispatcher [employer] EDMS Sandhya Snell RN RN lp1 Kevin Koch MD MD tw4 Kelton Retana RN RN mg2 Corrections: (The following items were deleted from the chart) 21:27 21:18 11/15/2019 21:18 Discharged to Home. Impression: Hypertensive urgency; Headache. mg2 Condition is Stable. Forms are Medication Reconciliation Form, Thank You Letter, Antibiotic Education, Prescription Opioid Use. Follow up: Private Physician; When: Upon discharge from the Emergency Department; Reason: Recheck today's complaints, Continuance of care, Re-evaluation by your physician. Problem is new. Symptoms have improved. tw4
[2019-11-16 18:51] VITALS: TEMP 99
[2019-11-16 18:54] VITALS: BP 128/99; O2SAT 98
== END 2019-11-15 21:27 | disposition home or self-care (01) ==
LOC: MERGE 19:56 → ER 19:56
DX: I16.0 Hypertensive urgency (principal); I10 Essential (primary) hypertension; F17.210 Nicotine dependence, cigarettes, uncomplicated
CPT/HCPCS: 96374; 99284

== ENCOUNTER 2020-01-27 18:05 | Emergency (ER) | payer SELFPAY ==
[2020-01-27] MEDS ORDERED: MORPHINE 4 MG/ML SYR ONE (18:36)
[2020-01-27] MEDS ORDERED: ONDANSETRON 4 MG/2 ML VIAL ONE (18:36)
--- NOTE | 2020-01-27 19:26 | RAD REPORT ---
EXAM DESCRIPTION: RAD - Foot Left 3 View - 01/27/2020 7:15 pm CLINICAL HISTORY: PAIN COMPARISON: No comparisons FINDINGS: Mild soft tissue swelling is seen along the dorsum of the forefoot. No acute fracture or d islocation is seen.
--- NOTE | 2020-01-27 19:27 | RAD REPORT ---
EXAM DESCRIPTION: RAD - Tib Fib Left - 01/27/2020 7:15 pm CLINICAL HISTORY: PAIN COMPARISON: No comparisons FINDINGS: Soft tissue swelling is seen about the ankle. No acute fracture or dislocation is seen. Sm all calcaneal spurs are evident.
[2020-01-27] MEDS ORDERED: HYDROCODONE/APAP 10/325 TAB ONE (19:29)
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
[2020-01-28 06:35] VITALS: BP 130/80; TEMP 98; O2SAT 99
== END 2020-01-27 20:59 | disposition home or self-care (01) ==
LOC: ER 18:05
DX: S87.82XA Crushing injury of left lower leg, initial encounter (principal); S93.602A Unspecified sprain of left foot, initial encounter; X58.XXXA Exposure to other specified factors, initial encounter; Y93.9 Activity, unspecified; Y92.9 Unspecified place or not applicable; E66.9 Obesity, unspecified; I10 Essential (primary) hypertension; F17.210 Nicotine dependence, cigarettes, uncomplicated
CPT/HCPCS: 96374; 96375; 99285; G0390; J2405

== ENCOUNTER 2022-09-13 19:58 | Emergency (ER) | payer SELFPAY ==
[2022-09-13] MEDS ORDERED: DIPHENHYDRAMINE 50 MG/ML VIAL ONE (20:29)
[2022-09-13] MEDS ORDERED: NA CHLORIDE 0.9% 1,000 ML ONE (20:29)
[2022-09-13] MEDS ORDERED: METOCLOPRAMIDE 10 MG/2mL INJ ONE (20:29)
[2022-09-13] MEDS ORDERED: KETOROLAC 30 MG/ML INJ ONE (20:29)
[2022-09-13 20:47] LABS: Absolute Lymphocytes (CBC) 2.4 K/uL (0.7-4.9); Hematocrit 34.7 % (36.0-45.0); MCV 75.7 fL (80-100); MPV 8.7 fL (7.6-11.3); RBC Red Blood Cell Count 4.59 M/uL (3.86-4.86)
--- NOTE | 2022-09-13 21:05 | RAD REPORT ---
EXAM DESCRIPTION: CT - Head Brain Wo Cont - 09/13/2022 8:37 pm CLINICAL HISTORY: Headache COMPARISON: none TECHNIQUE: Computed axial tomography of the head was obtained. IV contrast was not requested. All CT scans are performed using dose optimization technique as appropriate and may include automated exposure control or mA/KV adjustment according to patient size. FINDINGS: An intracranial bleed is not seen The ventricles are normal in caliber Empty sella turcica No significant hypodense areas within the brain visualized No extra-axial fluid collection is noted. Fluid within the sinuses/ mastoids is not seen IMPRESSION: No acute intracranial abnormality is seen If patient's symptoms persist MRI of the brain would be recommended
[2022-09-13 21:13] LABS: Albumin 3.5 g/dL (3.4-5.0); Bilirubin Total 0.3 mg/dL (0.2-1.0); Potassium 3.6 mEq/L (3.5-5.1); Protein, Total 7.1 g/dL (6.4-8.2)
--- NOTE | 2022-09-13 22:24 | ER ---
Nurse's Notes [facility] Name: Sudhakar Duong Age: 31 yrs Sex: Female : 1990 Arrival Date: 09/13/2022 Time: 19:58 Bed 2 Private MD: Diagnosis: Tension-type headache;Essential (primary) hypertension Presentation: 09/13 20:10 Chief complaint: Patient states: Headache onset today at 1500. Pt states, "I think it cm10 is my blood pressure." Pt also states that she has HTN but has not taken her medicine. Coronavirus screen: Vaccine status: Patient reports being unvaccinated. Ebola Screen: No symptoms or risks identified at this time. Initial Sepsis Screen: Does the patient meet any 2 criteria? No. Patient's initial sepsis screen is negative. Does the patient have a suspected source of infection? No. Patient's initial sepsis screen is negative. Risk Assessment: Do you want to hurt yourself or someone else? Patient reports no desire to harm self or others. Onset of symptoms was September 13, 2022. 20:10 Method Of Arrival: Ambulatory cm10 20:10 Acuity: NEMESIO 3 cm10 Triage Assessment: 20:13 Headache History: The patient has had previous headaches and this one is different than cm10 previous episodes. General: Appears in no apparent distress. uncomfortable, Behavior is calm, cooperative. Pain: Complains of pain in head Pain currently is 9 out of 10 on a pain scale. Pain began 4 hours ago. Also complains of photophobia. Neuro: No deficits noted. Level of Consciousness is awake, alert, Oriented to person, place, time, situation, Reports headache. Respiratory: No deficits noted. Airway is patent Respiratory effort is even, unlabored, Respiratory pattern is regular, symmetrical. Historical: - Allergies: 20:12 No Known Drug Allergies; cm10 - Home Meds: 21:30 amlodipine oral [Active]; rv - PMHx: 20:12 gestational hypertension; Hypertension; cm10 - PSHx: 20:12 tubal; cm10 - Immunization history:: Adult Immunizations unknown. - Social history:: Smoking status: Patient reports the use of cigarette tobacco products, smokes one-half pack cigarettes per day. - Family history:: not pertinent. Screenin:30 [facility] ED Fall Risk Assessment (Adult) History of falling in the last 3 months, rv including since admission No falls in past 3 months (0 pts) Confusion or Disorientation No (0 pts) Intoxicated or Sedated No (0 pts) Impaired Gait No (0 pts) Mobility Assist Device Used No (0 pt) Altered Elimination No (0 pt) Score/Fall Risk Level 0 - 2 = Low Risk Oriented to surroundings, Maintained a safe environment, Educated pt \\T\\ family on fall prevention, incl call for assistance when getting out of bed, Assessed \\T\\ reinforced patient's understanding of fall precautions, Provided non-skid footwear, Hourly rounding (assess needs \\T\\ fall precautionary measures) done, Used ambulatory aids as needed (educated on \\T\\ assisted with), Used gait belt as appropriate. Abuse screen: Denies threats or abuse. Denies injuries from another. 21:30 Nutritional screening: No deficits noted. Tuberculosis screening: No symptoms or risk rv factors identified. Assessment: 21:30 General: Appears uncomfortable, Behavior is calm, cooperative. rv 21:30 Pain: Complains of pain in head. Neuro: Level of Consciousness is awake, alert, obeys rv commands, Oriented to person, place, time, situation, Reports headache. Cardiovascular: Capillary refill < 3 seconds. Respiratory: Airway is patent Respiratory effort is even, unlabored. 22:43 Reassessment: Patient appears in no apparent distress at this time. Patient and/or rv family updated on plan of care and expected duration. Pain level reassessed. Patient is alert, oriented x 3, equal unlabored respirations, skin warm/dry/pink. Vital Signs: 20:10 BP 164 / 102; Pulse 84; Resp 16; Temp 98.1; Pulse Ox 100% on R/A; Weight 137.44 kg (R); cm10 Height 5 ft. 7 in. (R); Pain 9/10; 22:40 BP 140 / 98; Pulse 83; Resp 17 S; Pulse Ox 100% on R/A; lg3 20:10 Body Mass Index 47.46 (137.44 kg, 170.18 cm) cm10 20:10 Pain Scale: Adult cm10 [place] Coma Score: 22:21 Eye Response: spontaneous(4). Motor Response: obeys commands(6). Verbal Response: sp4 oriented(5). Total: 15. ED Course: 20:03 Patient arrived in ED. ag3 20:07 Moody Arias MD is Attending Physician. sp4 20:08 [facility]antar [facility] sb4 20:12 Triage completed. cm10 20:14 Arm band placed on Patient placed in an exam room, on a stretcher. cm10 20:19 Lux Oakley, RN is Primary Nurse. rv 20:29 CBC with Diff Sent. rv 20:29 CMP Sent. rv 20:29 Lipase Sent. rv 20:30 Inserted saline lock: 20 gauge in right antecubital area, using aseptic technique. oe Blood collected. 20:39 CT Head Brain wo Cont In Process Unspecified. EDMS 21:30 Patient has correct armband on for positive identification. rv 21:30 Client placed on continuous cardiac and pulse oximetry monitoring. NIBP monitoring rv applied. 22:23 Cesar Andino MD is Referral Physician. sp4 22:44 No provider procedures requiring assistance completed. IV discontinued, intact, rv bleeding controlled, No redness/swelling at site. Pressure dressing applied. Administered Medications: 20:29 Drug: metoCLOPramide IVP 10 mg Route: IVP; Site: right antecubital; rv 22:45 Follow up: Response: No adverse reaction; Marked relief of symptoms rv 20:29 Drug: diphenhydrAMINE IVP 25 mg Route: IVP; Site: right antecubital; rv 22:45 Follow up: Response: No adverse reaction; Marked relief of symptoms rv 20:29 Drug: Ketorolac IVP 30 mg Route: IVP; Site: right antecubital; rv 22:45 Follow up: Response: No adverse reaction; Marked relief of symptoms rv 20:29 Drug: NS 0.9% IV 1000 ml Route: IV; Rate: 1 bolus; Site: right antecubital; rv 22:45 Follow up: IV Status: Completed infusion; IV Intake: 1000ml rv 22:40 Drug: Labetalol PO 200 mg Route: PO; lg3 22:45 Follow up: Response: Medication administered at discharge. rv Medication: 22:44 VIS not applicable for this client. rv Intake: 22:45 IV: 1000ml; Total: 1000ml. rv Outcome: 22:24 Discharge ordered by . sp4 22:45 Discharged to home ambulatory. rv 22:45 Condition: improved 22:45 Discharge instructions given to patient, Instructed on discharge instructions, follow up and referral plans. medication usage, Demonstrated understanding of instructions, follow-up care, medications, Prescriptions given X 2. 22:46 Patient left the ED. rv Signatures: Dispatcher [employer] EDWY Colton Sanchez Ronaldo, RN RN rv Lay Cole Lacie, RN RN lg3 Renu Alcantar, PA-C PA-C [id number] Moody Arias MD MD sp4 Lexie Moody RN RN cm10
--- NOTE | 2022-09-13 22:24 | EDPHYS ---
Physician Documentation [facility] Name: Sudhakar Duong Age: 31 yrs Sex: Female : 1990 Arrival Date: 09/13/2022 Time: 19:58 Bed 2 Private MD: ED Physician Moody Arias HPI: 09/13 20:07 This 31 yrs old Black Female presents to ER via Unassigned with complaints of Headache. sp4 20:15 31-year-old female presents with a cute onset of moderate to severe global headache sp4 starting at 3 PM today. Patient reported concurrent feeling of dizziness and nausea and generalized weakness. Patient's headaches labetalol generally but has been out of it. Patient states she does have history of headaches but this is the first truly severe headache and it feels unusual. Patient denied lateralizing weakness. . Historical: - Allergies: 20:12 No Known Drug Allergies; cm10 - Home Meds: 21:30 amlodipine oral [Active]; rv - PMHx: 20:12 gestational hypertension; Hypertension; cm10 - PSHx: 20:12 tubal; cm10 - Immunization history:: Adult Immunizations unknown. - Social history:: Smoking status: Patient reports the use of cigarette tobacco products, smokes one-half pack cigarettes per day. - Family history:: not pertinent. ROS: 20:15 Constitutional: Negative for fever, chills, and weight loss, Eyes: Negative for injury, sp4 pain, redness, and discharge, ENT: Negative for injury, pain, and discharge, Neck: Negative for injury, pain, and swelling, Cardiovascular: Negative for chest pain, palpitations, and edema, Respiratory: Negative for shortness of breath, cough, wheezing, and pleuritic chest pain, Abdomen/GI: Negative for abdominal pain, nausea, vomiting, diarrhea, and constipation, Back: Negative for injury and pain, Neuro: Negative for numbness, tingling, and seizure, positive for headache and generalized weakness, negative for lateralizing weakness Psych: Negative for depression, anxiety. Exam: 20:15 Constitutional: This is a well developed, well nourished patient who is awake, alert, sp4 and in no acute distress. Head/Face: Normocephalic, atraumatic. Eyes: Pupils equal round and reactive to light, extra-ocular motions intact. Lids and lashes normal. Conjunctiva and sclera are not injected. Cornea within normal limits. Periorbital areas with no swelling, redness, or edema. ENT: Nares patent. No nasal discharge, no septal abnormalities noted. Tympanic membranes are normal and external auditory canals are clear. Oropharynx with no redness, swelling, or masses, exudates, or evidence of obstruction, uvula midline. Mucous membranes moist. Neck: Trachea midline, no thyromegaly or masses palpated, and no cervical lymphadenopathy. Supple, full range of motion without nuchal rigidity, or vertebral point tenderness. Chest/axilla: Normal chest wall appearance and motion. Nontender with no deformity. No lesions are appreciated. Cardiovascular: Regular rate and rhythm with a normal S1 and S2. No gallops, murmurs, or rubs. Normal PMI, no JVD. No pulse deficits. Respiratory: Lungs have equal breath sounds bilaterally, clear to auscultation and percussion. No rales, rhonchi or wheezes noted. No increased work of breathing, no retractions or nasal flaring. Abdomen/GI: Soft, non-tender, with normal bowel sounds. No distension or tympany. No guarding or rebound. No evidence of tenderness throughout. Back: No spinal tenderness. No costovertebral tenderness. Skin: Warm, dry with normal turgor. Normal color with no rashes, no lesions, and no evidence of cellulitis. MS/ Extremity: Pulses equal, no cyanosis. Neurovascular intact. Full, normal range of motion. Neuro: Awake and alert, GCS 15, oriented to person, place, time, and situation. Cranial nerves II-XII grossly intact. Motor strength 5/5 in all extremities. Sensory grossly intact. Psych: Awake, alert, with orientation to person, place and time. Behavior, mood, and affect are within normal limits Vital Signs: 20:10 BP 164 / 102; Pulse 84; Resp 16; Temp 98.1; Pulse Ox 100% on R/A; Weight 137.44 kg (R); cm10 Height 5 ft. 7 in. (R); Pain 9/10; 22:40 BP 140 / 98; Pulse 83; Resp 17 S; Pulse Ox 100% on R/A; lg3 20:10 Body Mass Index 47.46 (137.44 kg, 170.18 cm) cm10 20:10 Pain Scale: Adult cm10 Bedford Coma Score: 22:21 Eye Response: spontaneous(4). Motor Response: obeys commands(6). Verbal Response: sp4 oriented(5). Total: 15. MDM: 20:08 Patient medically screened. sb4 22:21 Differential diagnosis: epidural hematoma, hypoglycemia, migraine, tension headache, sp4 vasomotor headache. Data reviewed: vital signs, nurses notes, old medical records, lab test result(s), CBC, electrolytes, hepatic panel, radiologic studies, CT scan. Consideration of Admission/Observation Escalation of care including admission/observation considered. ED course: CT head is unremarkable, patient is noted to be hypertensive, she is at this time noncompliant with labetalol. Will prescribe labetalol 100 mg p.o. twice daily for 30 days and was advised to follow-up with Dr. Andino with internal medicine for hypertension management. . 09/13 20:14 Order name: CBC with Diff; Complete Time: 22:18 sp4 09/13 20:14 Order name: CMP; Complete Time: 22:18 sp4 09/13 20:14 Order name: Lipase; Complete Time: 22:18 sp4 09/13 20:15 Order name: CT Head Brain wo Cont; Complete Time: 22:18 sp4 09/13 20:14 Order name: IV Saline Lock; Complete Time: 20:29 sp4 09/13 20:14 Order name: Labs collected and sent; Complete Time: 20:29 sp4 Administered Medications: 20:29 Drug: metoCLOPramide IVP 10 mg Route: IVP; Site: right antecubital; rv 22:45 Follow up: Response: No adverse reaction; Marked relief of symptoms rv 20:29 Drug: diphenhydrAMINE IVP 25 mg Route: IVP; Site: right antecubital; rv 22:45 Follow up: Response: No adverse reaction; Marked relief of symptoms rv 20:29 Drug: Ketorolac IVP 30 mg Route: IVP; Site: right antecubital; rv 22:45 Follow up: Response: No adverse reaction; Marked relief of symptoms rv 20:29 Drug: NS 0.9% IV 1000 ml Route: IV; Rate: 1 bolus; Site: right antecubital; rv 22:45 Follow up: IV Status: Completed infusion; IV Intake: 1000ml rv 22:40 Drug: Labetalol PO 200 mg Route: PO; lg3 22:45 Follow up: Response: Medication administered at discharge. rv Disposition Summary: 09/13/22 22:24 Discharge Ordered Location: Home sp4 Problem: new sp4 Symptoms: have improved sp4 Condition: Stable sp4 Diagnosis - Tension-type headache sp4 - Essential (primary) hypertension sp4 Followup: sp4 - With: Cesar Andino MD - When: 7 - 10 days - Reason: Recheck today's complaints Discharge Instructions: - Discharge Summary Sheet sp4 - Managing Your Hypertension sp4 Forms: - [email or web address] sp4 Prescriptions: - Fioricet 50-300-40 mg Oral capsule - take 1 capsule by ORAL route every 6 hours PRN headache; 30 capsule; Refills: sp4 0, Product Selection Permitted - labetalol 200 mg Oral tablet - take 1 tablet by ORAL route every 12 hours; 60 tablet; Refills: 0, Product sp4 Selection Permitted Signatures: Dispatcher [employer] Lux Chen, RN RN rv Lisa Coffman RN RN lg3 Renu Alcantar, PAArianaC PALian urena4 Moody Arias MD MD sp4 Lexie Moody, RN RN cm10
[2022-09-13] MEDS ORDERED: LABETALOL HCL 100 MG TAB ONE (22:36)
[2022-09-13 23:17] VITALS: TEMP 98.1; O2SAT 100
[2022-09-13 23:18] VITALS: BP 140/98
== END 2022-09-13 22:46 | disposition home or self-care (01) ==
LOC: ER 19:58
DX: G44.209 Tension-type headache, unspecified, not intractable (principal); I10 Essential (primary) hypertension
CPT/HCPCS: 36415; 70450; 80053; 83690; 85025; 96361; 96374; 96375; 99284; J1200; J2765; J7030

== ENCOUNTER 2023-07-02 21:52 | Emergency (ER) | payer SELFPAY ==
[2023-07-02] MEDS ORDERED: HYDROCODONE/CHLORPHEN 5 ML/OSYR ONE (22:18)
[2023-07-02] MEDS ORDERED: ONDANSETRON 4 MG (ODT) TAB ONE (22:19)
[2023-07-02 22:44] LABS: SARS-CoV-2 Antigen CONTROL BLUE LINE VIS/BG OK; SARS-CoV-2 Antigen Rapid Res Negative (Negative)
--- NOTE | 2023-07-02 23:51 | ER ---
Nurse's Notes [facility] Name: Sudhakar Duong Age: 32 yrs Sex: Female : 1990 Arrival Date: 07/02/2023 Time: 21:52 Bed 6 Private MD: Diagnosis: Cough Presentation: 07/01 21:58 Chief complaint: Patient states: I have had a cough since , its been getting jb4 worse and now I have body aches. I took tylenol about 30 minutes ago. Coronavirus screen: At this time, the client does not indicate any symptoms associated with coronavirus-19. Ebola Screen: No symptoms or risks identified at this time. Initial Sepsis Screen: Does the patient meet any 2 criteria? HR > 90 bpm. Yes Does the patient have a suspected source of infection? No. Patient's initial sepsis screen is negative. Risk Assessment: Do you want to hurt yourself or someone else? Patient reports no desire to harm self or others. Onset of symptoms was July 02, 2023. Transition of care: patient was not received from another setting of care. 21:58 Method Of Arrival: Ambulatory jb4 21:58 Acuity: NEMESIO 3 jb4 Triage Assessment: 22:00 General: Appears in no apparent distress. uncomfortable, Behavior is cooperative, jb4 anxious, crying. Pain: Complains of pain in back and abdomen and head Pain does not radiate. Pain currently is 10 out of 10 on a pain scale. Quality of pain is described as aching, Pain began 2-3 days ago. Is continuous. EENT: No signs and/or symptoms were reported regarding the EENT system. Neuro: Level of Consciousness is awake, alert, obeys commands, Oriented to person, place, time, situation. Cardiovascular: Patient's skin is warm and dry. Respiratory: Airway is patent Respiratory effort is even, unlabored, Respiratory pattern is regular, symmetrical. GI: Abdomen is obese, Reports upper abdominal pain, diarrhea. : No signs and/or symptoms were reported regarding the genitourinary system. Derm: Skin is intact, Skin is dry, Skin is normal, Skin temperature is warm. Musculoskeletal: Circulation, motion, and sensation intact. Range of motion: intact in all extremities. 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 - Infectious Disease History:: Denies. - Social history:: Smoking status: Patient reports the use of cigarette tobacco products, smokes one-half pack cigarettes per day. Screenin:07 [facility] ED Fall Risk Assessment (Adult) History of falling in the last 3 months, km8 including since admission No falls in past 3 months (0 pts) Confusion or Disorientation No (0 pts) Intoxicated or Sedated No (0 pts) Impaired Gait No (0 pts) Mobility Assist Device Used No (0 pt) Altered Elimination No (0 pt) Score/Fall Risk Level 0 - 2 = Low Risk Oriented to surroundings, Maintained a safe environment, Educated pt \T\ family on fall prevention, incl call for assistance when getting out of bed, Assessed \T\ reinforced patient's understanding of fall precautions. Abuse screen: Denies threats or abuse. Denies injuries from another. Nutritional screening: No deficits noted. Tuberculosis screening: No symptoms or risk factors identified. Assessment: 22:07 General: Appears in no apparent distress. uncomfortable, Behavior is calm, cooperative, km8 appropriate for age. Pain: Complains of pain in generalized body Pain currently is 10 out of 10 on a pain scale. Quality of pain is described as aching. Neuro: Level of Consciousness is awake, alert, obeys commands, Oriented to person, place, time, situation. Cardiovascular: Denies chest pain, Patient's skin is warm and dry. Respiratory: Airway is patent Respiratory effort is even, unlabored, Respiratory pattern is regular, symmetrical, Breath sounds are clear bilaterally. Parent/caregiver reports the patient having cough that is productive. GI: No signs and/or symptoms were reported involving the gastrointestinal system. : No signs and/or symptoms were reported regarding the genitourinary system. EENT: No signs and/or symptoms were reported regarding the EENT system. Derm: No signs and/or symptoms reported regarding the dermatologic system. Skin is intact, is healthy with good turgor, Skin is dry, Skin is pink, warm \T\ dry. normal, Skin temperature is warm. Musculoskeletal: No signs and/or symptoms reported regarding the musculoskeletal system. Range of motion: intact in all extremities. 23:15 Reassessment: Patient and/or family updated on plan of care and expected duration. Pain ha1 level reassessed. Patient is alert, oriented x 3, equal unlabored respirations, skin warm/dry/pink. 23:46 Reassessment: pt educated on need for urine sample, pt acknowledges understanding, but km8 states she won't try at this time because she doesn't feel like it. Vital Signs: 21:58 BP 175 / 105; Pulse 115; Resp 20; Temp 98.4(O); Pulse Ox 98% on R/A; Weight 137.89 kg jb4 (R); Height 5 ft. 7 in. (R); Pain 10/10; 22:45 BP 150 / 96; Pulse 105; Resp 17 S; Pulse Ox 99% on R/A; ha1 23:15 BP 145 / 97; Pulse 98; Resp 17 S; Pulse Ox 98% on R/A; ha1 23:59 BP 143 / 97; Pulse 95; Resp 17 S; Pulse Ox 99% on R/A; ha1 21:58 Body Mass Index 47.61 (137.89 kg, 170.18 cm) jb4 21:58 Pain Scale: Adult jb4 Amador Coma Score: 22:07 Eye Response: spontaneous(4). Motor Response: obeys commands(6). Verbal Response: km8 oriented(5). Total: 15. ED Course: 21:58 Patient arrived in ED. km8 22:00 Triage completed. jb4 22:00 Arm band placed on right wrist. jb4 22:01 Arvind Morfin PA is PHCP. cp 22:01 Pratima Arenas is Attending Physician. cp 22:03 Ariella Whyte, RN is Primary Nurse. km8 22:07 Patient has correct armband on for positive identification. Bed in low position. Call km8 light in reach. Side rails up X 1. Pulse ox on. NIBP on. 22:52 XRAY Chest Pa And Lat (2 Views) In Process Unspecified. EDMS 23:58 No provider procedures requiring assistance completed. ha1 23:59 Provided Education on: d/c teaching. km8 23:59 Patient did not have IV access during this emergency room visit. km8 Administered Medications: 22:21 Drug: Ondansetron PO 4 mg PO once Route: PO; ha1 23:43 Follow up: Response: No adverse reaction km8 22:21 Drug: Tussionex Pennkinetic ER PO Suspension 5 ml PO once; may give if not ha1 Route: PO; 23:43 Follow up: Response: No adverse reaction km8 Medication: 22:07 VIS not applicable for this client. km8 Outcome: 23:50 Discharge ordered by . yue 23:59 Discharged to home ambulatory, km8 23:59 Condition: good 23:59 Discharge instructions given to patient, significant other, Instructed on discharge instructions, follow up and referral plans. medication usage, Demonstrated understanding of instructions, follow-up care, medications, Prescriptions given X 2, 07/02 00:00 Patient left the ED. km8 Signatures: Dispatcher [employer] EDMS Arvind Morfin PA PA cp Bryson, James, RN RN jb4 Josie Molina RN RN 1 Ariella Whyte RN RN km8
--- NOTE | 2023-07-02 23:51 | EDPHYS ---
Physician Documentation [facility] Name: Sudhakar Duong Age: 32 yrs Sex: Female : 1990 Arrival Date: 07/02/2023 Time: 21:52 Bed 6 Private MD: ED Physician Pratima Arenas HPI: 07/01 22:10 This 32 yrs old Black Female presents to ER via Ambulatory with complaints of Cough. cp 22:10 The patient or guardian reports cough, that is constant, with productive sputum. Onset: cp The symptoms/episode began/occurred 4 day(s) ago. Severity of symptoms: in the emergency department the symptoms are unchanged, despite home interventions. 22:10 Associated signs and symptoms: Pertinent positives: fever, Pertinent negatives: chest cp pain, diarrhea, vomiting, abdominal pain. 22:10 Patient reports taking Tylenol JOINT FILLER for fever. 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 - Infectious Disease History:: Denies. - Social history:: Smoking status: Patient reports the use of cigarette tobacco products, smokes one-half pack cigarettes per day. ROS: 22:15 Constitutional: Positive for body aches, Negative for fever, poor PO intake, cp 22:15 Eyes: Negative for injury, pain, redness, and discharge, cp 22:15 ENT: Negative for drainage from ear(s), ear pain, difficulty swallowing, difficulty handling secretions, 22:15 Cardiovascular: Negative for chest pain, edema, palpitations, 22:15 Respiratory: Positive for cough, "sounds productive", shortness of breath, Negative for wheezing, 22:15 Abdomen/GI: Negative for abdominal pain, vomiting, diarrhea, constipation, 22:15 Skin: Negative for rash, 22:15 Neuro: Negative for altered mental status, dizziness, headache, syncope, weakness, 22:15 All other systems are negative, Exam: 22:20 Constitutional: The patient appears in no acute distress, alert, awake, cp non-diaphoretic, non-toxic, well developed, well nourished, obese, 22:20 Head/Face: Normocephalic, atraumatic. cp 22:20 Eyes: Periorbital structures: appear normal, Conjunctiva: normal, no exudate, no injection, Sclera: no appreciated abnormality, Lids and lashes: appear normal, bilaterally, 22:20 ENT: External ear(s): are unremarkable, Ear canal(s): are normal, TM's: dullness, bilaterally, Nose: is normal, Mouth: Lips: moist, Oral mucosa: pink and intact, moist, Posterior pharynx: Airway: no evidence of obstruction, patent, erythema, that is mild, exudate, is not appreciated, 22:20 Neck: ROM/movement: Meningeal signs: are not present, nuchal rigidity, is not appreciated, 22:20 Chest/axilla: Inspection: normal, 22:20 Cardiovascular: Rate: tachycardic, Rhythm: regular, 22:20 Respiratory: the patient does not display signs of respiratory distress, Respirations: normal, no use of accessory muscles, no retractions, labored breathing, is not present, Breath sounds: decreased breath sounds, are not appreciated, stridor, is not appreciated, + upper airway congestion. wheezing: is not appreciated, 22:20 Abdomen/GI: Inspection: obese Palpation: abdomen is soft and non-tender, in all quadrants, 22:20 Skin: no rash present. Vital Signs: 21:58 BP 175 / 105; Pulse 115; Resp 20; Temp 98.4(O); Pulse Ox 98% on R/A; Weight 137.89 kg jb4 (R); Height 5 ft. 7 in. (R); Pain 10/10; 22:45 BP 150 / 96; Pulse 105; Resp 17 S; Pulse Ox 99% on R/A; ha1 23:15 BP 145 / 97; Pulse 98; Resp 17 S; Pulse Ox 98% on R/A; ha1 23:59 BP 143 / 97; Pulse 95; Resp 17 S; Pulse Ox 99% on R/A; ha1 21:58 Body Mass Index 47.61 (137.89 kg, 170.18 cm) 4 21:58 Pain Scale: Adult 4 Amador Coma Score: 22:07 Eye Response: spontaneous(4). Motor Response: obeys commands(6). Verbal Response: km8 oriented(5). Total: 15. MDM: 22:01 Patient medically screened. cp 23:50 Data reviewed: vital signs, nurses notes, lab test result(s), radiologic studies, plain cp films, and as a result, I will discharge patient. 23:50 Differential Diagnosis: Bronchitis Influenza Pharyngitis Otitis Media Viral Syndrome cp Pneumonia. I considered the following discharge prescriptions or medication management in the emergency department Medications were administered in the Emergency Department. See MAR. Independent interpretation of the following test(s) in the Emergency Department X-Ray: My interpretation is chest images negative for focal pneumonia. Care significantly affected by the following chronic conditions: Hypertension, Obesity. Counseling: I had a detailed discussion with the patient and/or guardian regarding the historical points, exam findings, and any diagnostic results supporting the discharge/admit diagnosis, lab results, radiology results, to return to the emergency department if symptoms worsen or persist or if there are any questions or concerns that arise at home. Response to treatment: the patient's symptoms have markedly improved after treatment, and as a result, I will discharge patient. 07/01 22:15 Order name: Influenza Screen (a \\T\\ B); Complete Time: 23:49 cp 07/01 23:49 Interpretation: Reviewed. cp 07/01 22:15 Order name: Strep; Complete Time: 23:49 cp 07/01 23:49 Interpretation: Reviewed. cp 07/01 22:15 Order name: SARS RAPID; Complete Time: 23:38 cp 07/01 23:38 Interpretation: Reviewed. 07/01 23:48 Order name: Throat Culture EDNM 07/01 22:15 Order name: XRAY Chest Pa And Lat (2 Views) cp Administered Medications: 22:21 Drug: Ondansetron PO 4 mg PO once Route: PO; ha1 23:43 Follow up: Response: No adverse reaction km8 22:21 Drug: Tussionex Pennkinetic ER PO Suspension 5 ml PO once; may give if not ha1 Route: PO; 23:43 Follow up: Response: No adverse reaction km8 Disposition: 07/02 01:20 Co-signature as Attending Physician, Pratima Arenas I agree with the assessment ci and plan of care. I reviewed the patient's care provided by the Advanced Practice Provider and agree with the diagnosis and treatment plan. Disposition Summary: 07/02/23 23:50 Discharge Ordered Notes: Location: Home cp Problem: new cp Symptoms: have improved cp Condition: Stable cp Diagnosis - Cough cp Followup: cp - With: Private Physician - When: 2 - 3 days - Reason: Worsening of condition Discharge Instructions: - Discharge Summary Sheet cp - Cough, Adult cp Forms: - Medication Reconciliation Form cp - Antibiotic Education cp - Prescription Opioid Use cp - Patient Portal Instructions cp - Leadership Thank You Letter cp Prescriptions: - Bromfed DM 2-30-10 mg/5 mL Oral syrup - administer 10 milliliter ORAL route every 6 hours as needed for cold symptoms; cp 240 milliliter; Refills: 0, Product Selection Permitted - Zithromax Z-Neil 250 mg Oral Tablet - take 1 tablet ORAL route as directed for 5 days Day 1 - take two (2) tablets cp one time. Day 2, 3, 4 , 5 take one (1) tablet once daily.; 6 tablet; Refills: 0, Product Selection Permitted Signatures: Dispatcher [employer] EDMS Arvind Morfin PA PA cp Manav Saenz, RN RN jb4 Josie Molina, RN RN ha1 Pratima Arenas Katie RN km8 Corrections: (The following items were deleted from the chart) 07/01 22:15 22:15 Chest Pa And Lat (2 Views)+[email or web address] ordered. EDNM EDNM 07/02 14:45 14:44 Patient reports taking Tylenol JOINT FILLER for fever. cp cp
[2023-07-03 01:21] VITALS: BP 143/97; TEMP 98.4; O2SAT 99
--- NOTE | 2023-07-03 14:20 | RAD REPORT ---
EXAM DESCRIPTION: RAD - Chest Pa And Lat (2 Views) - 07/02/2023 10:51 pm CLINICAL HISTORY: Cough. TECHNIQUE: Chest x-ray 2 views, PA and lateral COMPARISON: None. FINDINGS: Heart: Normal size and configuration. Mediastinal Structures: Normal and midline. Lung Wilkinson: Clear for active infiltrates. Pulmonary Vascularity: Normal. Pleural Space: No active disease. Bony Structures: The bony structures are intact. IMPRESSION: No acute cardiopulmonary disease. Electronically signed by: Kadeem Van MD 07/02/2023 11:01 PM CDT Due to temporary technical issues with the PACS/Fluency reporting system, reports are being signed by the in house radiologists without review as a courtesy to insure prompt reporting. The interpreting radiologist is fully responsible for the content of the report
== END 2023-07-03 | disposition home or self-care (01) ==
LOC: ER 21:52
DX: R05.9 Cough, unspecified (principal); Z11.52 Encounter for screening for COVID-19
CPT/HCPCS: 36415; 71046; 87070; 87081; 87804; 87811; 99284; Q0162

== ENCOUNTER 2023-10-23 02:12 | Emergency (ER) | payer SELFPAY ==
--- NOTE | 2023-10-23 03:05 | EDPHYS ---
Physician Documentation [facility] Name: Sudhakar Duong Age: 33 yrs Sex: Female : 1990 Arrival Date: 10/23/2023 Time: 02:12 Bed IW3 Private MD: ED Physician Moody Arias HPI: 10/22 03:02 This 33 yrs old Black Female presents to ER via Ambulatory with complaints of Flu sb4 Symptoms, Sore Throat. 03:02 sore throat started this morning. took dayquil without relief. felt hot, unsure of sb4 fever. whole body hurts. no other associated symptoms. denies sick contacts. Historical: - Allergies: 02:28 No Known Allergies; kl - Home Meds: 02:28 amlodipine oral [Active]; kl - PMHx: 02:28 Hypertension; kl - PSHx: 02:28 tubal; kl - Immunization history:: Adult Immunizations not immunized. - Infectious Disease History:: Denies. - Social history:: Smoking status: Patient reports the use of cigarette tobacco products, smokes one-half pack cigarettes per day. ROS: 03:02 Abdomen/GI: Negative for abdominal pain, nausea, vomiting, diarrhea, and constipation, sb4 03:02 Constitutional: Positive for body aches, 03:02 ENT: Positive for sore throat, 03:02 All other systems are negative, sb4 Exam: 03:02 Constitutional: This is a well developed, well nourished patient who is awake, alert, sb4 and in no acute distress. Head/Face: Normocephalic, atraumatic. Eyes: Extra-ocular motions intact. Periorbital areas with no swelling, redness, or edema. Skin: Warm, dry with normal turgor. Normal color with no rashes, no lesions, and no evidence of cellulitis. MS/ Extremity: Pulses equal, no cyanosis. Neurovascular intact. Full, normal range of motion. Neuro: Awake and alert, GCS 15, oriented to person, place, time, and situation. Motor strength 5/5 in all extremities. Sensory grossly intact. 03:02 ENT: Posterior pharynx: Tonsils: bilaterally enlarged, with erythema, with exudate, Vital Signs: 02:27 BP 166 / 96; Pulse 78; Resp 20; Temp 99(O); Pulse Ox 98% ; Weight 145.15 kg; Height 5 kl ft. 6 in. ; Pain 8/10; 03:18 BP 158 / 92; Pulse 82; Resp 20; Temp 99(O); Pulse Ox 98% on R/A; kl 02:27 Body Mass Index 51.65 (145.15 kg, 167.64 cm) kl 02:27 Pain Scale: Adult kl MDM: 03:02 Data reviewed: vital signs, nurses notes, lab test result(s), and as a result, I will sb4 discharge patient. Counseling: I had a detailed discussion with the patient and/or guardian regarding the historical points, exam findings, and any diagnostic results supporting the discharge/admit diagnosis, lab results, to return to the emergency department if symptoms worsen or persist or if there are any questions or concerns that arise at home. 03:03 Patient medically screened. sp4 10/22 02:29 Order name: Strep; Complete Time: 03:03 sb4 10/22 02:29 Order name: SARS RAPID; Complete Time: 03:13 sb4 10/22 02:29 Order name: Flu; Complete Time: 03:13 sb4 10/22 02:30 Order name: SARS RAPID kl Administered Medications: 03:10 Drug: Rocephin (cefTRIAXone) IM 1 grams IM once Route: IM; Site: right ventrogluteal; kl 03:17 Follow up: Response: No adverse reaction kl Disposition: 22:25 Co-signature as Attending Physician, Moody Arias MD I agree with the assessment sp4 and plan of care. I reviewed the patient's care provided by Advanced Practice Provider \T\ agree w/ the diagnosis \T\ care plan. I personally saw the pt \T\ performed a substantive portion of the visit, incldng all aspects of the (History/Exam/Medical Decision Making). Disposition Summary: 10/23/23 03:04 Discharge Ordered Notes: Location: Home sb4 Problem: new sb4 Symptoms: have improved sb4 Condition: Stable sb4 Diagnosis - Streptococcal pharyngitis sb4 Followup: sb4 - With: Private Physician - When: As needed - Reason: Recheck today's complaints, Re-evaluation by your physician Discharge Instructions: - Discharge Summary Sheet sb4 - Strep Throat, Adult, [id number] sb4 Forms: - Work release form sb4 - Antibiotic Education sb4 - Patient Portal Instructions sb4 - Leadership Thank You Letter sb4 Prescriptions: - Amoxicillin 875 mg Oral Tablet - take 1 tablet ORAL route every 12 hours for 10 days; 20 tablet; Refills: 0, sb4 Product Selection Permitted Signatures: Dispatcher [employer] EDFabienne Washington, RN RN Renu Fiore, PALian GRIER sb4 Moody Arias MD MD sp4 Corrections: (The following items were deleted from the chart) 02: 02:28 PMHx: gestational hypertension; sebas mullen 02: 02:29 Group A Streptococcus Rapid Sc+BA.LAB.BRZ ordered. EDMS EDMS 02:29 02:29 SARS-COV-2 Antigen Rapid+I.LAB.BRZ ordered. EDMS EDMS 02:29 02:29 Influenza Screen (A \T\ B)+BA.LAB.BRZ ordered. EDMS EDMS 02:43 02:31 Influenza Screen (A \T\ B)+BA.LAB.BRZ ordered. EDMS EDMS 03:12 03:02 This 33 yrs old Black Female presents to ER via Ambulatory with complaints of Flu sb4 Symptoms, Sore Throat, cant swallow. sp4
--- NOTE | 2023-10-23 03:05 | ER ---
Nurse's Notes [facility] Name: Sudhakar Duong Age: 33 yrs Sex: Female : 1990 Arrival Date: 10/23/2023 Time: 02:12 Bed IW3 Private MD: Diagnosis: Streptococcal pharyngitis Presentation: 10/22 02:27 Chief complaint: Patient states: sore throat cough and body aches since 11 am. Coronavirus screen: Vaccine status: Patient reports being unvaccinated. Ebola Screen: Patient negative for fever greater than or equal to 101.5 degrees Fahrenheit, and additional compatible Ebola Virus Disease symptoms. Initial Sepsis Screen: Does the patient meet any 2 criteria? No. Patient's initial sepsis screen is negative. Does the patient have a suspected source of infection? No. Patient's initial sepsis screen is negative. Risk Assessment: Do you want to hurt yourself or someone else? Patient reports no desire to harm self or others. 02:27 Method Of Arrival: Ambulatory kl 02:27 Acuity: NEMESIO 4 kl Triage Assessment: 02:29 General: Appears uncomfortable, Behavior is calm, cooperative. Pain: Complains of pain kl in genralized body aches Pain currently is 8 out of 10 on a pain scale. EENT: Reports nasal congestion nasal discharge pain when swallowing. Respiratory: Airway is patent Trachea midline Respiratory effort is even, unlabored, Respiratory pattern is regular, symmetrical. Historical: - Allergies: 02:28 No Known Allergies; kl - Home Meds: 02:28 amlodipine oral [Active]; kl - PMHx: 02:28 Hypertension; kl - PSHx: 02:28 tubal; kl - Immunization history:: Adult Immunizations not immunized. - Infectious Disease History:: Denies. - Social history:: Smoking status: Patient reports the use of cigarette tobacco products, smokes one-half pack cigarettes per day. Screenin:18 [facility] ED Fall Risk Assessment (Adult) History of falling in the last 3 months, kl including since admission No falls in past 3 months (0 pts) Confusion or Disorientation No (0 pts) Intoxicated or Sedated No (0 pts) Impaired Gait No (0 pts) Mobility Assist Device Used No (0 pt) Altered Elimination No (0 pt) Score/Fall Risk Level 0 - 2 = Low Risk Oriented to surroundings, Maintained a safe environment. Abuse screen: Denies threats or abuse. Nutritional screening: No deficits noted. Tuberculosis screening: No symptoms or risk factors identified. Assessment: 03:18 Reassessment: No changes from previously documented assessment. Respiratory: Airway is kl patent Trachea midline Respiratory effort is even, unlabored, Respiratory pattern is regular, symmetrical, Breath sounds are clear bilaterally. 03:19 EENT: Throat is reddened. Vital Signs: 02:27 BP 166 / 96; Pulse 78; Resp 20; Temp 99(O); Pulse Ox 98% ; Weight 145.15 kg; Height 5 kl ft. 6 in. ; Pain 8/10; 03:18 BP 158 / 92; Pulse 82; Resp 20; Temp 99(O); Pulse Ox 98% on R/A; kl 02:27 Body Mass Index 51.65 (145.15 kg, 167.64 cm) 02:27 Pain Scale: Adult ED Course: 02:15 Patient arrived in ED. gm2 02:28 Triage completed. kl 02:37 Strep Sent. kl 02:37 SARS RAPID Sent. 03:02 Moody Arias MD is Attending Physician. sp4 03:03 Renu Alcantar PA-C [facility] 4 03:19 No provider procedures requiring assistance completed. Patient did not have IV access kl during this emergency room visit. 03:19 Patient has correct armband on for positive identification. Administered Medications: 03:10 Drug: Rocephin (cefTRIAXone) IM 1 grams IM once Route: IM; Site: right ventrogluteal; 03:17 Follow up: Response: No adverse reaction Medication: 03:18 VIS not applicable for this client. Outcome: 03:04 Discharge ordered by . sb4 03:19 Discharged to home ambulatory, 03:19 Condition: stable 03:19 Discharge instructions given to patient, Instructed on discharge instructions, follow up and referral plans. medication usage, Demonstrated understanding of instructions, follow-up care, medications, Prescriptions given X 1, 03:19 Patient left the ED. Signatures: Fabienne Pryor RN RN Renu Fiore PA-C PAArianaC sb4 Moody Arias MD MD sp4 Purvi Mooney gm2 Corrections: (The following items were deleted from the chart) 02:29 02:28 PMHx: gestational hypertension; sebas mullen 02:43 02:37 Influenza Screen (A \T\ B)+BA.LAB.SHAHID drawn and sent. sebas ROACH
[2023-10-23 03:11] LABS: SARS-CoV-2 Antigen CONTROL BLUE LINE VIS/BG OK; SARS-CoV-2 Antigen Rapid Res Negative (Negative)
[2023-10-23] MEDS ORDERED: CEFTRIAXONE 1000 MG/VIAL ONE (03:11)
[2023-10-23] MEDS ORDERED: LIDOCAINE 1% MPF 2 ML AMPULE ONE (03:12)
[2023-10-23 03:27] VITALS: TEMP 99; O2SAT 98
[2023-10-23 03:29] VITALS: BP 158/92
== END 2023-10-23 03:19 | disposition home or self-care (01) ==
LOC: ER 02:12
DX: J02.0 Streptococcal pharyngitis (principal); Z11.52 Encounter for screening for COVID-19; F17.210 Nicotine dependence, cigarettes, uncomplicated
CPT/HCPCS: 36415; 87081; 87804; 87811; J0696

== ENCOUNTER 2023-11-24 10:34 | Emergency (ER) | payer SELFPAY ==
--- NOTE | 2023-11-24 10:49 | ER ---
Nurse's Notes [facility] Name: Sudhakar Duong Age: 33 yrs Sex: Female : 1990 Arrival Date: 11/24/2023 Time: 10:34 Bed IW1 Private MD: Diagnosis: Preseptal cellulitis, right;Unspecified acute conjunctivitis, right eye Presentation: 11/23 10:44 Chief complaint: Patient states: Right eye pain, redness, and drainage onset 6 days cm10 ago. Coronavirus screen: Client denies travel out of the [place] in the last 14 days. At this time, the client does not indicate any symptoms associated with coronavirus-19. Ebola Screen: Patient denies travel to an Ebola-affected area in the 21 days before illness onset. No symptoms or risks identified at this time. Initial Sepsis Screen: Does the patient meet any 2 criteria? HR > 90 bpm. Does the patient have a suspected source of infection? No. Patient's initial sepsis screen is negative. Risk Assessment: Do you want to hurt yourself or someone else? Patient reports no desire to harm self or others. Onset of symptoms was November 24, 2023. 10:44 Method Of Arrival: Ambulatory cm10 10:44 Acuity: NEMESIO 3 cm10 Triage Assessment: 10:45 General: Appears in no apparent distress. comfortable, Behavior is calm, cooperative. cm10 Pain: Complains of pain in right eye Pain does not radiate. Pain currently is 8 out of 10 on a pain scale. Quality of pain is described as burning. EENT: Eyes are tearing on right eye Sclera/Cornea are reddened in outer aspect of conjuctiva of right eye and inner aspect of conjuctiva of right eye Reports pain in right eye photophobia in right eye. Neuro: No deficits noted. Level of Consciousness is awake, alert, obeys commands, Oriented to person, place, time, situation, Appropriate for age. Respiratory: No deficits noted. Airway is patent Respiratory effort is even, unlabored, Respiratory pattern is regular, symmetrical. 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 - Infectious Disease History:: Denies. - Social history:: Smoking status: unknown. Screenin:54 [facility] ED Fall Risk Assessment (Adult) History of falling in the last 3 months, cm10 including since admission No falls in past 3 months (0 pts) Confusion or Disorientation No (0 pts) Intoxicated or Sedated No (0 pts) Impaired Gait Yes (1 pt) Mobility Assist Device Used No (0 pt) Altered Elimination No (0 pt) Score/Fall Risk Level 0 - 2 = Low Risk Oriented to surroundings, Maintained a safe environment, Hourly rounding (assess needs \T\ fall precautionary measures) done. Abuse screen: Denies threats or abuse. Denies injuries from another. Nutritional screening: No deficits noted. Tuberculosis screening: No symptoms or risk factors identified. Vital Signs: 10:44 BP 149 / 111; Pulse 127; Resp 19; Temp 97.3; Pulse Ox 100% on R/A; Weight 142.88 kg; cm10 Height 5 ft. 6 in. ; Pain 8/10; 10:44 Body Mass Index 50.84 (142.88 kg, 167.64 cm) cm10 10:44 Pain Scale: Adult cm10 ED Course: 10:37 Patient arrived in ED. ra3 10:39 Renu Alcantar PA-C is PHCP. sb4 10:39 Arvind Calabrese MD is Attending Physician. sb4 10:45 Triage completed. cm10 10:46 Arm band placed on Patient placed in an exam room, on a stretcher. cm10 10:48 Hussain Doherty MD is Referral Physician. sb4 10:55 Patient has correct armband on for positive identification. Provided Education on: cm10 Follow-up instructions. Cardiac monitoring not applicable on this patient. 10:55 Assist provider with bone marrow aspiration. Patient did not have IV access during this cm10 emergency room visit. Administered Medications: No medications were administered Medication: 10:54 VIS not applicable for this client. cm10 Outcome: 10:48 Discharge ordered by . sb4 10:55 Discharged to home ambulatory, cm10 10:55 Condition: good 10:55 Discharge instructions given to patient, Instructed on discharge instructions, follow up and referral plans. medication usage, Demonstrated understanding of instructions, follow-up care, medications, Prescriptions given X 2, 10:55 Patient left the ED. cm10 Signatures: Renu Alcantar PA-C PA-C sb4 Lexie Moody, RN RN cm10 Jacquelin Hartmann ra3
--- NOTE | 2023-11-24 10:49 | EDPHYS ---
Physician Documentation [facility] Name: Sudhakar Duong Age: 33 yrs Sex: Female : 1990 Arrival Date: 11/24/2023 Time: 10:34 Bed IW1 Private MD: ED Physician Arvind Calabrese HPI: 11/23 10:51 This 33 yrs old Black Female presents to ER via Ambulatory with complaints of Drainage sb4 From Eye. 10:51 The patient is experiencing burning, matting or discharge, pain, redness, tearing. sb4 Onset: The symptoms/episode began/occurred 6 day(s) ago. Duration: the symptoms are continuous. Aggravated by light, opening eye, pressure, rubbing, Alleviated by nothing. Associated signs and symptoms: Pertinent positives: None. Patient does not utilize any form of vision correction. The patient has not experienced similar symptoms in the past, but family has similar symptoms, son. The patient has not recently seen a physician. 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 - Infectious Disease History:: Denies. - Social history:: Smoking status: unknown. ROS: 10:51 Constitutional: Negative for fever, chills, and weight loss, sb4 10:51 Eyes: Positive for discharge, foreign body sensation, pain, redness, swelling, tearing, of the right upper eyelid, outer aspect of conjuctiva of right eye, iris of right eye and inner aspect of conjuctiva of right eye, 10:51 All other systems are negative, Exam: 10:51 Visual Acuity: Visual acuity is within normal limits. sb4 10:51 Constitutional: This is a well developed, well nourished patient who is awake, alert, and in no acute distress. 10:51 Eyes: Periorbital structures: swelling, that is mild, on the right upper eyelid, Pupils: equal, round, and reactive to light and accomodation, Extraocular movements: intact throughout, Conjunctiva: exudate, in the right eye, injected, in the right eye, Lids and lashes: appear normal, bilaterally, Vital Signs: 10:44 BP 149 / 111; Pulse 127; Resp 19; Temp 97.3; Pulse Ox 100% on R/A; Weight 142.88 kg; cm10 Height 5 ft. 6 in. ; Pain 8/10; 10:44 Body Mass Index 50.84 (142.88 kg, 167.64 cm) cm10 10:44 Pain Scale: Adult cm10 MDM: 10:47 Patient medically screened. sb4 10:53 Data reviewed: vital signs, nurses notes, and as a result, I will discharge patient. sb4 Counseling: I had a detailed discussion with the patient and/or guardian regarding the historical points, exam findings, and any diagnostic results supporting the discharge/admit diagnosis, the need for outpatient follow up, an opthalmologist, to return to the emergency department if symptoms worsen or persist or if there are any questions or concerns that arise at home. Administered Medications: No medications were administered Disposition: 16:00 Co-signature as Attending Physician, Arvind Calabrese MD I agree with the assessment and bubba plan of care. Disposition Summary: 11/24/23 10:48 Discharge Ordered Notes: Location: Home sb4 Problem: an ongoing problem sb4 Symptoms: are unchanged sb4 Condition: Stable sb4 Diagnosis - Preseptal cellulitis, right sb4 - Unspecified acute conjunctivitis, right eye sb4 Followup: sb4 - With: Hussain Doherty MD - When: 1 week - Reason: Recheck today's complaints, Re-evaluation by your physician Discharge Instructions: - Discharge Summary Sheet sb4 - Bacterial Conjunctivitis, Adult sb4 - How to Use Eye Drops and Eye Ointments sb4 Forms: - Antibiotic Education sb4 - Patient Portal Instructions sb4 - Leadership Thank You Letter sb4 Prescriptions: - Augmentin 875-125 mg Oral Tablet - take 1 tablet ORAL route every 12 hours for 10 days; 20 tablet; Refills: 0, sb4 Product Selection Permitted - Erythromycin 5 mg/gram (0.5 %) Ophthalmic ointment - apply 1 ribbon OPHTHALMIC route every 6 hours for 7 days; 1 Applicator; sb4 Refills: 0, Product Selection Permitted Signatures: Arvind Calabrese MD MD cha Brown, Sophia, PA-C PA-C sb4 Lexie Moody, RN RN cm10
[2023-11-24 11:01] VITALS: BP 149/111; TEMP 97.3; O2SAT 100
== END 2023-11-24 10:55 | disposition home or self-care (01) ==
LOC: ER 10:34
DX: H10.31 Unspecified acute conjunctivitis, right eye (principal); L03.213 Periorbital cellulitis; I10 Essential (primary) hypertension
CPT/HCPCS: 99284

== ENCOUNTER 2024-06-26 16:57 | Emergency (ER) | payer SELFPAY ==
--- NOTE | 2024-06-26 18:36 | RAD REPORT ---
EXAMINATION: ONE VIEW CHEST XR CLINICAL INDICATION: CHEST PAIN TECHNIQUE: Frontal chest projection is submitted. Examination is limited by patient positioning and t echnique. COMPARISON: 07/02/2023 FINDINGS: Interstitial markings are prominent which is a nonspecific finding but can indicate bronchitis or int erstitial edema. The heart is upper limit of normal in size. No displaced fractures identified.
[2024-06-26 18:41] LABS: Specific Gravity 1.025 (1.005-1.030); Urine Bacteria <20 /HPF (<20); Urine Bilirubin NEGATIVE (Negative); Urine Blood Trace (Negative); Urine Clarity Extremely Turbid (Clear); Urine Color Yellow (Yellow); Urine Crystals Unidentified Few /HPF (None Seen); Urine Glucose NEGATIVE (Negative); Urine Ketones NEGATIVE (Negative); Urine Micro Reflex YN NO BILL MICROSCOPIC; Urine Mucus 1+ /HPF (None Seen); Urine Nitrite 2+ (Negative); Urine Protein 2+ (Negative); Urine Urobilinogen Normal (Normal); Urine WBC 20-50 /HPF (<5); Urine WBC Clump Rare /HPF (None Seen)
[2024-06-26] MEDS ORDERED: METOCLOPRAMIDE 10 MG/2mL INJ ONE (18:42)
[2024-06-26] MEDS ORDERED: DIPHENHYDRAMINE 50 MG/ML VIAL ONE (18:42)
[2024-06-26] MEDS ORDERED: NA CHLORIDE 0.9% 1,000 ML ONE (18:42)
[2024-06-26] MEDS ORDERED: ACETAMINOPHEN 500 MG TAB ONE (18:42)
[2024-06-26] MEDS ORDERED: KETOROLAC 30 MG/ML INJ ONE (18:42)
[2024-06-26 18:47] LABS: Influenza A Ag Negative; Influenza B Ag Negative; SARS-CoV-2 Antigen Rapid Res Negative (Negative)
[2024-06-26 18:58] LABS: Specific Gravity 1.025 (1.005-1.030)
[2024-06-26 19:16] LABS: Absolute Basophils 0.1 K/uL (0-0.5); Absolute Lymphocytes (CBC) 2.3 K/uL (0.7-4.9); Absolute Monocytes 1.6 K/uL (0.1-1.3); Absolute Neutrophil 11.4 K/uL (1.8-8.0); Basophils % 0.8 % (0-1.3); Eosinophils % 0.2 % (0-4.4); Hemoglobin 9.9 g/dL (12.0-15.0); Lymphocytes % 14.8 % (15.3-44.8); MCH 22.4 pg (27.0-35.0); MPV 8.8 fL (7.6-11.3); Monocytes % 10.1 % (3.3-12.3); Neutrophils % 74.1 % (41.7-73.7); Nucleated Red Blood Cells % 0.1 % (0-0); Platelets 322 thou/uL (152-406); RBC Red Blood Cell Count 4.43 M/uL (3.86-4.86); Red Cell Distribution Width 17.2 % (12.1-15.2)
[2024-06-26 19:25] LABS: PT Prothrombin Time 12.8 SECONDS (10-13.0); Protime INR 1.13
[2024-06-26 19:34] LABS: ALT/SGPT 16 U/L (13-56); Albumin 3.3 g/dL (3.4-5.0); Albumin/Globulin Ratio 0.8 (1.1-1.8); Alkaline Phosphatase 60 U/L (45-117); Anion Gap 8.7 mEq/L (5.0-15.0); BUN Blood Urea Nitrogen 9 mg/dL (7-18); Bicarbonate 25 mEq/L (21-32); Bilirubin Total 0.4 mg/dL (0.2-1.0); Globulin 3.9 g/dL (2.3-3.5); Glomerular Filtration Rate 75 ml/min (=/>90); Glucose Level 120 mg/dL (74-106); NT PRO-BNP 34 pg/mL (<125); Potassium 3.7 mEq/L (3.5-5.1); Protein, Total 7.2 g/dL (6.4-8.2); Sodium Level 133 mEq/L (136-145)
[2024-06-26 19:35] LABS: AST/SGOT < 10 U/L (15-37); Bilirubin Direct < 0.2 mg/dL (0-0.2); Bilirubin Indirect, Calculated 0.2 mg/dL (0.2-0.8); Magnesium 1.5 mg/dL (1.6-2.4)
[2024-06-26] MEDS ORDERED: CEFTRIAXONE 1000 MG/VIAL ONE (21:08)
[2024-06-26] MEDS ORDERED: MAGNESIUM SULFATE 1 gm IVPB 1 GM/100 ML BAG IV ONE (21:09)
--- NOTE | 2024-06-26 22:16 | EDPHYS ---
Physician Documentation [facility] Name: Sudhakar Duong Age: 33 yrs Sex: Female : 1990 Arrival Date: 06/26/2024 Time: 16:57 Bed 7 Private MD: ED Physician Arvind Calabrese HPI: 06/26 17:35 This 33 yrs old Black Female presents to ER via Wheelchair with complaints of Chest cp Pain, Headache. 17:35 The patient or guardian reports chest pain that is located primarily in the anterior cp chest wall. 17:35 The pain does not radiate. cp 17:35 The chest pain is described as constant. cp 17:35 Associated signs and symptoms: Pertinent positives: headache, Pertinent negatives: cp abdominal pain, lower extremity pain, lower extremity swelling, palpitations, syncope, vomiting. Duration: The patient or guardian reports a single episode, that is still ongoing, and worsening. Patient reports headache started after waking up this morning. Chest pain since this morning. Pain worsening. 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 - Infectious Disease History:: Denies. - Social history:: Smoking status: Patient reports the use of cigarette tobacco products, smokes one-half pack cigarettes per day. ROS: 17:40 Eyes: Negative for injury, pain, redness, and discharge, cp 17:40 Constitutional: Positive for body aches, fever, Negative for poor PO intake, 17:40 ENT: Negative for drainage from ear(s), ear pain, difficulty swallowing, difficulty handling secretions, 17:40 Cardiovascular: Positive for chest pain, Negative for edema, palpitations, 17:40 Respiratory: Negative for cough, shortness of breath, wheezing, 17:40 Abdomen/GI: Negative for abdominal pain, vomiting, diarrhea, constipation, 17:40 : Negative for urinary symptoms, 17:40 Neuro: Positive for headache, Negative for altered mental status, weakness, 17:40 All other systems are negative, Exam: 17:28 ECG was reviewed by the Attending Physician. cp 17:45 Constitutional: The patient appears in no acute distress, alert, awake, cp non-diaphoretic, non-toxic, well developed, well nourished, obese, uncomfortable, 17:45 Head/Face: Normocephalic, atraumatic. cp 17:45 Eyes: Periorbital structures: appear normal, Pupils: equal, round, and reactive to light and accomodation, Extraocular movements: intact throughout, Conjunctiva: normal, no exudate, no injection, Sclera: no appreciated abnormality, Lids and lashes: appear normal, bilaterally, 17:45 ENT: External ear(s): are unremarkable, Nose: is normal, Mouth: Lips: moist, Oral mucosa: moist, Posterior pharynx: Airway: no evidence of obstruction, patent, 17:45 Neck: ROM/movement: pain, is not appreciated, limited range of motion, is not appreciated, Meningeal signs: are not present, 17:45 Chest/axilla: Inspection: normal, Palpation: crepitus, is not appreciated, tenderness, that is moderate, of the anterior aspect of right upper chest, anterior aspect of left upper chest and mid-sternal area, 17:45 Cardiovascular: Rate: tachycardic, Rhythm: regular, Edema: is not appreciated, JVD: is not appreciated, 17:45 Respiratory: the patient does not display signs of respiratory distress, Respirations: labored breathing, is not present, shallow respirations, that is mild, Breath sounds: decreased breath sounds, that are mild, throughout, stridor, is not appreciated, wheezing: is not appreciated, 17:45 Abdomen/GI: Inspection: obese Bowel sounds: active, all quadrants, Palpation: soft, in all quadrants, nontender, in all quadrants, 17:45 Back: pain, is absent, ROM is normal, 17:45 Neuro: Orientation: to person, place \T\ time. Mentation: is normal, Motor: moves all fours, strength is normal, Sensation: is normal, Vital Signs: 17:29 BP 152 / 94; Pulse 117; Resp 20; Temp 100(O); Pulse Ox 99% on R/A; Weight 156.49 kg; iw Height 5 ft. 9 in. ; 20:30 BP 156 / 96; Pulse 104; Resp 18; Pulse Ox 95% ; cp4 22:35 BP 151 / 86; Pulse 101; Resp 18; Pulse Ox 98% ; cp4 17:29 Body Mass Index 50.95 (156.49 kg, 175.26 cm) iw MDM: 17:21 Medical Screening Exam initiated cp 22:15 Data reviewed: vital signs, nurses notes, lab test result(s), EKG, radiologic studies, cp plain films, and as a result, I will discharge patient. 22:15 Differential diagnosis: acute myocardial infarction, acute pericarditis, cholecystitis, cp Cholelithiasis costochondritis, esophagitis, pancreatitis, pericarditis, pleurisy, pneumonia, pneumothorax, pulmonary embolus, unstable angina. I considered the following discharge prescriptions or medication management in the emergency department Medications were administered in the Emergency Department. See MAR. Independent interpretation of the following test(s) in the Emergency Department EKG: See my EKG interpretation above. Care significantly affected by the following chronic conditions: Hypertension, Obesity. Counseling: I had a detailed discussion with the patient and/or guardian regarding the historical points, exam findings, and any diagnostic results supporting the discharge/admit diagnosis, lab results, radiology results, the need for outpatient follow up, a family practitioner, to return to the emergency department if symptoms worsen or persist or if there are any questions or concerns that arise at home. Response to treatment: the patient's symptoms have markedly improved after treatment, and as a result, I will discharge patient. 22:15 Special discussion: Based on the patient's history, exam, and Dx evaluation, there is cp no indication for emergent intervention or inpatient Tx. It is understood by the patient/guardian that if the Sx's persist or worsen they need to return immediately for re-evaluation. 06/26 17:34 Order name: COVID-19 Ag + Flu A+B Ag; Complete Time: 18:52 iw 06/26 20:53 Interpretation: Reviewed. cp 06/26 17:44 Order name: Basic Metabolic Panel; Complete Time: 20:52 cp 06/26 20:52 Interpretation: Normal except: NA 133; GLUC 120; GFR 75; CA 8.3. cp 06/26 17:44 Order name: CBC with Diff; Complete Time: 20:52 cp 06/26 20:52 Interpretation: Normal except: WBC 15.40; HGB 9.9; HCT 31.0; MCV 70.0; MCH 22.4; RDW cp 17.2; ISRAEL% 74.1; LYM% 14.8; NEUT A 11.4; MNA 1.6. 06/26 17:44 Order name: LFT's; Complete Time: 20:52 cp 06/26 20:53 Interpretation: Normal except: AST < 10; ALB 3.3; GLOB 3.9; A/G 0.8. cp 06/26 17:44 Order name: Magnesium; Complete Time: 20:52 cp 06/26 20:53 Interpretation: Abnormal: MG 1.5. cp 06/26 17:44 Order name: NT PRO-BNP; Complete Time: 20:52 cp 06/26 17:44 Order name: PT-INR; Complete Time: 20:52 cp 06/26 17:44 Order name: Troponin HS; Complete Time: 20:52 cp 06/26 17:44 Order name: Urinalysis W/Microscopic; Complete Time: 18:52 cp 06/26 18:52 Interpretation: Normal except: UCLA Extremely Turbid; UBLD Trace; UPROT 2+; UNIT 2+; cp UESTR 500; UWBC 20-50; URBC 5-10. 06/26 17:44 Order name: Test, Urine; Complete Time: 20:52 cp 06/26 18:53 Order name: D-Dimer; Complete Time: 21:37 cp 06/26 19:02 Order name: Urine Culture EDMS 06/26 17:44 Order name: XRAY Chest (1 view); Complete Time: 18:52 cp 06/26 17:44 Order name: EKG; Complete Time: 17:45 cp 06/26 17:44 Order name: Cardiac monitoring; Complete Time: 18:49 cp 06/26 17:44 Order name: EKG - Nurse/Tech; Complete Time: 17:48 cp 06/26 17:44 Order name: IV Saline Lock; Complete Time: 18:49 cp 06/26 17:44 Order name: Labs collected and sent; Complete Time: 18:49 cp 06/26 17:44 Order name: O2 Per Protocol; Complete Time: 18:49 cp 06/26 17:44 Order name: O2 Sat Monitoring; Complete Time: 18:49 cp EC:28 Rate is 118 beats/min. Rhythm is regular. [place] interval is normal. QRS interval is cp normal. QT interval is normal. Interpreted by me. Reviewed by me. Administered Medications: 17:44 CANCELLED (Physician Discretion): [id number] mg IVP once cp 18:48 Drug: diphenhydrAMINE IVP 25 mg IVP once Route: IVP; Site: right antecubital; hb 21:31 Follow up: Response: No adverse reaction cp4 18:49 Drug: Ketorolac IVP 30 mg IVP once Route: IVP; Site: right antecubital; hb 21:32 Follow up: Response: No adverse reaction cp4 18:49 Drug: NS 0.9% IV 1000 ml IV at 1000 ml once; to be given as a bolus over 60 minutes hb Route: IV; Rate: 1000 ml; Site: right antecubital; 21:32 Follow up: IV Status: Completed infusion cp4 18:49 Drug: Acetaminophen PO 1000 mg PO once Route: PO; hb 21:32 Follow up: Response: No adverse reaction cp4 18:49 Drug: metoCLOPramide IVP 10 mg IVP once; over 1 to 2 minutes Route: IVP; Site: right hb antecubital; 21:32 Follow up: Response: No adverse reaction cp4 21:31 Drug: Magnesium Sulfate IVPB 1 grams IVPB once over 1 hrs Route: IVPB; Infused Over: 1 cp4 hrs; Site: right antecubital; 22:42 Follow up: IV Status: Completed infusion cp4 21:31 Drug: Rocephin IV 1 grams IV at calculated rate once; Given slow IV push per pharmacy cp4 instructions Route: IV; Rate: calculated rate; Site: right antecubital; 21:31 Follow up: Response: No adverse reaction cp4 22:41 Follow up: IV Status: Completed infusion cp4 Disposition Summary: 06/26/24 22:15 Discharge Ordered Notes: Location: Home cp Problem: new cp Symptoms: have improved cp Condition: Stable cp Diagnosis - Chest pain, unspecified cp - Headache cp - UTI/ Urinary tract infection, site not specified cp - Essential (primary) hypertension cp Followup: cp - With: Private Physician - When: 2 - 3 days - Reason: Recheck today's complaints Discharge Instructions: - Discharge Summary Sheet cp - Nonspecific Chest Pain, Adult cp - General Headache Without Cause cp - Migraine Headache cp - Urinary Tract Infection, Adult cp - Aspirin and Your Heart cp Forms: - Medication Reconciliation Form cp - Antibiotic Education cp - Prescription Opioid Use cp - Patient Portal Instructions cp - Leadership Thank You Letter cp Prescriptions: - Bactrim DS 800-160 mg Oral Tablet - take 1 tablet ORAL route every 12 hours for 7 days; 14 tablet; Refills: 0, cp Product Selection Permitted - ondansetron 8 mg Oral Tablet,disintegrating - take 1 tablet ORAL route every 12 hours; 15 tablet; Refills: 0, Product cp Selection Permitted Signatures: Dispatcher [employer] EDCO Herlinda Nagy RN RN iw Arvind Morfin PA PA cp Gemma Treviño RN RN Judy Eastman cp4 Corrections: (The following items were deleted from the chart) 17:44 17:44 Ketorolac IVP 15 mg IVP once ordered. cp cp 18:54 18:54 D-DIMER+COAG.LAB.BRZ ordered. EDMS EDMS 20:59 20:59 Chest For PE Angio+CT.RAD.BRZ ordered. EDMS EDMS 06/27 22:02 21:59 Constitutional: Positive for body aches, fever, Negative for poor PO intake, cp cp 22:02 21:59 Cardiovascular: Positive for chest pain, Negative for edema, palpitations, cp cp 22:02 21:59 Respiratory: Negative for cough, shortness of breath, wheezing, cp cp 22:02 21:59 Abdomen/GI: Negative for abdominal pain, vomiting, diarrhea, constipation, cp cp 22:02 21:59 Neuro: Positive for headache, Negative for altered mental status, weakness, cp cp 22:02 21:59 : Negative for urinary symptoms, cp cp 22:02 21:59 Eyes: Negative for injury, pain, redness, and discharge, cp cp 22:02 21:59 ENT: Negative for drainage from ear(s), ear pain, difficulty swallowing, cp difficulty handling secretions, cp 22:02 21:59 All other systems are negative, cp cp
--- NOTE | 2024-06-26 22:16 | ER ---
Nurse's Notes [facility] Name: Sudhakar Duong Age: 33 yrs Sex: Female : 1990 Arrival Date: 06/26/2024 Time: 16:57 Bed 7 Private MD: Diagnosis: Chest pain, unspecified;Headache;UTI/ Urinary tract infection, site not specified;Essential (primary) hypertension Presentation: 06/26 17:29 Chief complaint: Patient states: headache, chest pains since this morning, chest pain iw worsens when she takes a deep breath. Coronavirus screen: Client presents with at least one sign or symptom that may indicate coronavirus-19. Ebola Screen: No symptoms or risks identified at this time. Initial Sepsis Screen: Does the patient meet any 2 criteria? HR > 90 bpm. Does the patient have a suspected source of infection? No. Patient's initial sepsis screen is negative. Risk Assessment: Do you want to hurt yourself or someone else? Patient reports no desire to harm self or others. Onset of symptoms was June 26, 2024. 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 - Infectious Disease History:: Denies. - Social history:: Smoking status: Patient reports the use of cigarette tobacco products, smokes one-half pack cigarettes per day. Screenin:50 [facility] ED Fall Risk Assessment (Adult) History of falling in the last 3 months, hb including since admission No falls in past 3 months (0 pts) Confusion or Disorientation No (0 pts) Intoxicated or Sedated No (0 pts) Impaired Gait No (0 pts) Mobility Assist Device Used No (0 pt) Altered Elimination No (0 pt) Score/Fall Risk Level 0 - 2 = Low Risk Oriented to surroundings, Maintained a safe environment, Educated pt \T\ family on fall prevention, incl call for assistance when getting out of bed. Abuse screen: Denies threats or abuse. Denies injuries from another. Nutritional screening: No deficits noted. Tuberculosis screening: No symptoms or risk factors identified. Assessment: 18:50 General: Appears in no apparent distress. Behavior is calm, cooperative. Pain: Pain hb currently is 8 out of 10 on a pain scale. Neuro: Level of Consciousness is awake, alert, obeys commands, Oriented to person, place, time, situation, Reports headache. Cardiovascular: Reports chest pain, shortness of breath, since painful cough Patient's skin is warm and dry. Respiratory: Reports shortness of breath pain with cough Respiratory effort is even, unlabored, Respiratory pattern is regular, symmetrical. GI: No signs and/or symptoms were reported involving the gastrointestinal system. : No signs and/or symptoms were reported regarding the genitourinary system. EENT: No signs and/or symptoms were reported regarding the EENT system. Derm: Skin is pink, warm \T\ dry. Musculoskeletal: No signs and/or symptoms reported regarding the musculoskeletal system. 20:30 Reassessment: Patient appears in no apparent distress at this time. No changes from cp4 previously documented assessment. Patient is alert, oriented x 3, equal unlabored respirations, skin warm/dry/pink. Vital Signs: 17:29 BP 152 / 94; Pulse 117; Resp 20; Temp 100(O); Pulse Ox 99% on R/A; Weight 156.49 kg; iw Height 5 ft. 9 in. ; 20:30 BP 156 / 96; Pulse 104; Resp 18; Pulse Ox 95% ; cp4 22:35 BP 151 / 86; Pulse 101; Resp 18; Pulse Ox 98% ; cp4 17:29 Body Mass Index 50.95 (156.49 kg, 175.26 cm) iw ED Course: 17:02 Patient arrived in ED. cj3 17:10 Arvind Morfin PA is PHCP. cp 17:10 Ravi Park MD is Attending Physician. cp 17:30 Triage completed. iw 17:30 Arm band placed on. iw 18:14 Anastasiia Lofton, RN is Primary Nurse. ph 18:24 XRAY Chest (1 view) In Process Unspecified. EDMS 18:50 Patient has correct armband on for positive identification. Provided Education on: hb tests, result times. Client placed on continuous cardiac and pulse oximetry monitoring. NIBP monitoring applied. traffic monitor specialist on. Pulse ox on. NIBP on. 18:51 Initial lab(s) drawn, by me, sent to lab. Inserted saline lock: 20 gauge in right hb antecubital area, using aseptic technique. Blood collected. Flushed with 10 mL NS. 21:03 Arvind Calabrese MD is Attending Physician. cp 23:19 No provider procedures requiring assistance completed. intact, bleeding controlled, No cp4 redness/swelling at site. Pressure dressing applied. Administered Medications: 17:44 CANCELLED (Physician Discretion): [id number] mg IVP once cp 18:48 Drug: diphenhydrAMINE IVP 25 mg IVP once Route: IVP; Site: right antecubital; hb 21:31 Follow up: Response: No adverse reaction cp4 18:49 Drug: Ketorolac IVP 30 mg IVP once Route: IVP; Site: right antecubital; hb 21:32 Follow up: Response: No adverse reaction cp4 18:49 Drug: NS 0.9% IV 1000 ml IV at 1000 ml once; to be given as a bolus over 60 minutes hb Route: IV; Rate: 1000 ml; Site: right antecubital; 21:32 Follow up: IV Status: Completed infusion cp4 18:49 Drug: Acetaminophen PO 1000 mg PO once Route: PO; hb 21:32 Follow up: Response: No adverse reaction cp4 18:49 Drug: metoCLOPramide IVP 10 mg IVP once; over 1 to 2 minutes Route: IVP; Site: right hb antecubital; 21:32 Follow up: Response: No adverse reaction cp4 21:31 Drug: Magnesium Sulfate IVPB 1 grams IVPB once over 1 hrs Route: IVPB; Infused Over: 1 cp4 hrs; Site: right antecubital; 22:42 Follow up: IV Status: Completed infusion cp4 21:31 Drug: Rocephin IV 1 grams IV at calculated rate once; Given slow IV push per pharmacy cp4 instructions Route: IV; Rate: calculated rate; Site: right antecubital; 21:31 Follow up: Response: No adverse reaction cp4 22:41 Follow up: IV Status: Completed infusion cp4 Medication: 18:51 VIS not applicable for this client. hb Outcome: 22:15 Discharge ordered by . cp 23:19 Discharged to home ambulatory, cp4 23:19 Condition: stable 23:19 Discharge instructions given to patient, family, Instructed on discharge instructions, follow up and referral plans. medication usage, Demonstrated understanding of instructions, follow-up care, medications, Prescriptions given X 2, 23:20 Patient left the ED. cp4 Signatures: Dispatcher [employer] EDHerlinda Benedict RN Anastasiia Kay RN RN Arvind King PA PA cp Baxter, Heather, RN RN Judy Eastman cp4 Ghazal Reed cj3 Corrections: (The following items were deleted from the chart) 17:34 17:29 BP 152 / 94; Pulse 117bpm; Resp 20bpm; Pulse Ox 99% RA; iw iw
[2024-06-26 23:34] VITALS: TEMP 100
[2024-06-26 23:37] VITALS: BP 151/86; O2SAT 98
== END 2024-06-26 23:20 | disposition home or self-care (01) ==
LOC: ER 16:57
DX: R07.9 Chest pain, unspecified (principal); N39.0 Urinary tract infection, site not specified; R51.9 Headache, unspecified; I10 Essential (primary) hypertension; Z11.52 Encounter for screening for COVID-19
CPT/HCPCS: 36415; 71045; 80048; 80076; 81001; 81025; 83735; 83880; 84484; 85025; 85379; 85610; 87086; 87088; 87428; 93005; J0696; J1200; J2765; J3475; J7030

== ENCOUNTER 2024-12-02 16:29 | Emergency (ER) | payer SELFPAY ==
--- OUTSIDE RECORDS SUMMARY | 2024-12-02 16:32 | XMS REPORT | Continuity of Care Document ---
Author Name Unknown Address [address] [facility] [address] [place] [address] Organization [facility] [place] Address [address] [facility] [place] [address] Care Team Providers Care Wire Communications Engineer Name Role Phone PCP, PATIENT DOES NOT HAVE A Primary Care Physic chelsey Unavailable Huan MOTTA Attending Clinician Unavailable Huan MOTTA Attending Clinician Unavailable Huan Paul Attending Clinician [phone] AMBROSE FINN Attending Clinician Unavail able AMBROSE FINN Attending Clinician Unavail able Ambrose Finn MD Attending Clinician Janay Del Valle Attending Clinician [phone] JANAY CARMONA Attending Clinician Unavailabl e Huan MOTTA Admitting Clinician Unavailable Payers Payer Name Policy Type Policy Number Effective Date Expirati on Date Source [facility] [id number] 2024 00:00:00 Problems Condition Name Condition Details Condition Category Status Onset Date Resolution Date Last Treatment Date Treating Clinician Comments Source Bacterial vaginosis Bacterial Vaginosis Problem Active 2- 00:00: 00 [facility] Trichomona l vaginitis Trichomona l Vaginitis Problem Active 2- 00:00: 00 [facility] Hypertensi ve disorder Hypertensi ve Disorder Problem Active 04-18 00:00: 00 [facility] Trichomona l vulvovagin itis Trichomona l vulvovagin itis Disease Active 07-15 00:00: 00 [facility] Essential hypertensi on Essential hypertensi on Disease Active 07-13 00:00: 00 [facility] History of bilateral tubal ligation History of bilateral tubal ligation Disease Active 07-13 00:00: 00 [facility] Current smoker Current smoker Disease Active 06-05 00:00: 00 Overview: Formattin g of this note might be different from the original. Formattin g of this note might be different from the original. No desires to stop. Declined smoking cessation counselin esteban [facility] Obesity, morbid, BMI 50 or higher Obesity, morbid, BMI 50 or higher Disease Active 2016-03 00:00: 00 Overview: Formattin g of this note might be different from the original. Formattin g of this note might be different from the original. [ ] Early 1 hr GCT [ ] Nutrition consult [ ] Weekly testing @ 32 weeks (pre-preg shanell BMI > 40) [ ] Maternal ECHO (BMI >50) [facility] Allergies, Adverse Reactions, Alerts Allergy Name Allergy Type Status Severity Reaction(s) Onset Date Inactive Date Treating Clinician Comments Source NO KNOWN ALLERGIE S Drug Class Active [facility] Social History Social Habit Start Date Stop Date Quantity Comments Source [facility] History of tobacco use Smoker [facility] Exposure to SARS-CoV-2 (event) Not sure [facility] Alcoholic beverage intake 2024-06-27 00:00:00 2024-06-27 00:00:00 Ex-drinker (finding) [facility] History of Social function 2024-06-27 00:00:00 2024-06-27 00:00:00 [facility] Alcohol intake 2020-07-15 00:00:00 2020-07-15 00:00:00 Ex-drinker (finding) [facility] Cigarettes smoked current (pack per day) - Reported 2020-07-13 00:00:00 2020-07-13 00:00:00 [facility] Cigarette pack-years 2020-07-13 00:00:00 2020-07-13 00:00:00 [facility] Tobacco use and exposure 2020-07-13 00:00:00 2020-07-13 00:00:00 Smokeless tobacco non-user [facility] Sex assigned at 1990 00:00:00 1990 00:00:00 [facility] Smoking Status Start Date Stop Date Source Smokes tobacco daily 2020-07-13 00:00:00 [facility] Medications Ordered Medication Name Filled Medication Name Start Date Stop Date Current Medication? Ordering Clinician Indication Dosage Frequency Signature (SIG) Comments Components Source amLODIPine (NORVASC) tablet 5 mg 06-27 18:30: 00 06-27 18:42 :00 No 5mg 5 mg, Oral, ONCE, 1 dose, On Sun06/27/24 at 1330, GREG [facility] azithromyci n (ZITHROMAX) tablet 500 mg 06-27 17:30: 00 06-27 17:33 :00 No 500mg 500 mg, Oral, ONCE, 1 dose, On Sun06/27/24 at 1230, GREG, Reason for Anti-Infec tive: Documented Infection, Documented Infection Site: Respirator y, Duration of Therapy: Once (ED) [facility] ketorolac (TORADOL) injection 15 mg 06-27 17:15: 00 06-27 16:22 :00 No 15mg 15 mg, Slow IV Push, ONCE, 1 dose, On Sun06/27/24 at 1215, GREG [facility] iopamidol (ISOVUE 370-500 mL) injection 75 mL 06-27 16:30: 00 06-27 16:45 :00 No [id number] 75mL 75 mL, Intravenou s, ONCE, 1 dose, On Sun06/27/24 at 1145, Routine [facility] cefTRIAXone (ROCEPHIN) 1,000 mg in water for injection, sterile 10 mL IV Push 06-27 16:15: 00 06-27 16:21 :00 No 1000mg 1,000 mg, Intravenou s, ONCE, 1 dose, On Sun06/27/24 at 1115, 10 mL, Reason for Anti-Infec tive: Documented Infection, Documented Infection Site: Urine, Duration of Therapy: Once (ED) [facility] aspirin chewable tablet 324 mg 06-27 16:00: 00 06-27 15:19 :00 No 324mg 324 mg, Oral, ONCE, 1 dose, On Sun06/27/24 at 1100, Routine [facility] labetaloL (NORMODYNE) 5 mg/mL injection 10 mg 06-27 15:15: 06-27 15:05 :00 No 10mg 10 mg, Slow IV Push, ONCE, 1 dose, On Sun06/27/24 at 1015, GREG [facility] azithromyci n (ZITHROMAX Z-TORSTEN) 250 mg tablet 06-27 00:00: 00 Yes [id number] 250mg Take 1 tablet by mouth SEE-INSTRU CTIONS. Take 500 mg day 1, then 250 mg days 2 to 5. [facility] amoxicillin -pot clavulanate 875-125 mg per tablet 06-27 00:00: 00 Yes [id number] 1{tbl} Take 1 tablet by mouth every 12 (twelve) hours. [facility] ibuprofen 600 mg tablet 06-27 00:00: 00 Yes [id number] 600mg Take 1 tablet by mouth every 6 (six) hours as needed for Pain (scale 4-6). [facility] amLODIPine 5 mg tablet 06-27 00:00: 00 Yes [id number] 5mg Take 1 tablet by mouth at bedtime. [facility] proparacain e (ALCAINE) 0.5 % ophthalmic solution 2 Drop 11-24 22:45: 00 11-24 22:57 :00 No 2[drp] 2 Drop, Both Eyes, ONCE, 1 dose, On 11/24/24 at 1745, GREG [facility] olopatadine 0.1 % ophthalmic solution 11-24 00:00: 00 Yes [id number] 9104 1[drp] Place 1 Drop in both eyes in the morning and 1 Drop in the evening. [facility] amLODIPine 5 mg tablet 11-09 14:20: 04 Yes 5mg Take 5 mg by mouth daily. [facility] CLONIDINE HCL ORAL 11-09 14:20: 04 Yes Take by mouth. [facility] metroNIDAZO LE (FLAGYL) 500 mg tablet 07-15 00:00: 00 07-16 04:59 :00 No [id number] 2000mg Take 4 tablets by mouth once now for 1 dose. [facility] amLODIPine 5 mg tablet 07-13 15:31: 19 Yes 5mg Take 5 mg by mouth daily. [facility] CLONIDINE HCL ORAL 07-13 15:31: 19 Yes Take by mouth. [facility] amlodipine amlodipine No amlodipine [facility] metronidazo le 500 mg tablet Take 1 tablet every 12 hours by oral route for 7 days. metronidazo le 500 mg tablet Take 1 tablet every 12 hours by oral route for 7 days. No 1 Q12H metronidaz ole 500 mg tablet Take 1 tablet every 12 hours by oral route for 7 days. [facility] Immunizations Ordered Immunization Name Filled Immunization Name Date Status Comments Source TD 2017-04-27 00:00:00 Completed [facility] TDAP 2017-04-27 00:00:00 Completed [facility] TDAP 2017-04-27 00:00:00 Completed [facility] TDAP 2017-04-27 00:00:00 Completed [facility] TDAP 2015-05-19 00:00:00 Completed TDAP 2015-05-19 00:00:00 Completed [facility] TDAP 2015-05-19 00:00:00 Completed [facility] TDAP 2015-05-19 00:00:00 Completed [facility] TDAP Unknown Completed [facility] Vital Signs Vital Name Observation Time Observation Value Comments S kaushal Systolic blood pressure 2024-06-27 18:41:19 131 mm[Hg] [facility] Diastolic blood pressure 2024-06-27 18:41:19 93 mm[Hg] [facility] Heart rate 2024-06-27 18:41:19 94 /min Un[facility] Body temperature 2024-06-27 18:41:19 36.72 [facility] Respiratory rate 2024-06-27 18:41:19 12 /min [facility] Oxygen saturation in Arterial blood by Pulse oximetry 2024-06-27 18:41:19 96 /min [facility] Body height 2024-06-27 14:35:00 170.2 cm [facility] Body weight 2024-06-27 14:35:00 154.223 kg [facility] BMI 2024-06-27 14:35:00 53.25 kg/m2 [facility] BMI (Body Mass Index) 2024-04-18 00:00:00 54.7 kg/m2 [facility] BP Diastolic 2024-04-18 00:00:00 88 mm[Hg] [facility] Body Weight 2024-04-18 00:00:00 339 [lb_av] [facility] BP Systolic 2024-04-18 00:00:00 138 mm[Hg] [facility] Height 2024-04-18 00:00:00 66 [in_i] [facility] Systolic blood pressure 2023-11-25 22:33:42 176 mm[Hg] [facility] Diastolic blood pressure 2023-11-25 22:33:42 126 mm[Hg] [facility] Heart rate 2023-11-25 22:32:00 115 /min [facility] Body temperature 2023-11-25 22:32:00 37 Palmira [facility] Respiratory rate 2023-11-25 22:32:00 18 /min [facility] Body height 2023-11-25 22:32:00 167.6 cm [facility] Body weight 2023-11-25 22:32:00 145.151 kg [facility] BMI 2023-11-25 22:32:00 51.65 kg/m2 [facility] Oxygen saturation in Arterial blood by Pulse oximetry 2023-11-25 22:32:00 99 /min [facility] Systolic blood pressure 2020-07-13 15:30:00 150 mm[Hg] [facility] Diastolic blood pressure 2020-07-13 15:30:00 105 mm[Hg] [facility] Heart rate 2020-07-13 15:23:00 93 /min [facility] Body temperature 2020-07-13 15:21:00 36.89 [facility] Respiratory rate 2020-07-13 15:21:00 16 /min [facility] Body height 2020-07-13 15:21:00 167.6 cm [facility] Body weight 2020-07-13 15:21:00 153.061 kg [facility] BMI 2020-07-13 15:21:00 54.46 kg/m2 [facility] Procedures Procedure Date / Time Performed Performing Clinicia n Source XR CHEST 1 VW 2024-06-27 15:16:48 Huan Motta [facility] MAGNESIUM 2024-06-27 14:51:00 Huan Motta [facility] TROPONIN I 2024-06-27 14:51:00 [facility] COMP. METABOLIC PANEL ([id number]) 2024-06-27 14:51:00 Huan Motta [facility] CBC WITH DIFF 2024-06-27 14:51:00 Huan Motta [facility] D-DIMER 2024-06-27 14:51:00 [facility] URINALYSIS 2024-06-27 14:51:00 [facility] N-TERMINAL PRO-BNP 2024-06-27 14:51:00 Huan Motta [facility] Ligation of Bilateral Fallopian Tubes [facility] Encounters Start Date/Time End Date/Time Encounter Type Admission Type Attending Clinicians Care Facility Care Department Encounter ID Source 2024-06-27 09:39:00 2024-06-27 14:14:00 Emergency Huan CASH ÁNGELA, K [facility] ERT [id number] [facility] 2024-06-27 09:39:00 2024-06-27 14:14:00 Emergency Huan Motta Giselle [facility] [id number] [facility] 2024-04-21 00:00:00 2024-04-21 00:00:00 DANY Smith: [address], [place] [address] , Ph. Formerly [facility] - GC_GCBZW_Nora Lorenzo* [id number] [facility] 2024-04-18 00:00:00 2024-04-18 00:00:00 Eduarda Luu PA: [address], [place] [address] , Ph. [facility] - GC_GCBZW_Nora Lorenzo* [id number] [facility] 2023-11-25 17:34:00 2023-11-25 18:51:00 Emergency AMBROSE SANTOS JOSEPH [facility] ERT [id number] [facility] 2023-11-25 17:34:00 2023-11-25 18:51:00 Emergency Ambrose Finn [facility] .[id number] [facility] 2022-12-18 13:56:39 2022-12-18 13:56:39 Outpatient [facility] [id number] Larry Roman 2020-07-16 00:00:00 2020-07-16 00:00:00 Telephone Janay Carmona [facility] 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 [facility] & CHILD [facility] [id number] [id number] [facility] 2020-07-15 00:00:00 2020-07-15 00:00:00 Telephone Janay Carmona Missy 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 [id number] [facility] 2020-07-13 10:30:00 2020-07-13 10:59:03 Outpatient JANAY LYNN [facility] [id number] [facility] 2020-07-13 10:11:11 2020-07-13 10:41:11 Office Visit YakovJanay Missy 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 [id number] [id number] [id number] [facility] 2020-07-13 10:30:00 2020-07-13 10:30:00 Outpatient JANAY LYNN [facility] [id number] [facility] 2020-07-13 10:00:00 2020-07-13 10:00:00 Outpatient JANAY LYNN [facility] [id number] [facility] Results Test Description Test Time Test Comments Results Resul t Comments Source XR Chest 1 vw 2024-06-10 8 15:33:36 PROCEDURE: XR CHEST 1 VW CLINICAL INDICATION: chest pain COMPARISON: None FINDINGS: The lung volumes are low with mild perihilar crowding. Lungs appear clear.The right hemidiaphragm is elevated.No pleural effusion or pneumothorax is seen. The cardiomediastinal silhouette is normal. No acute bony abnormality. [facility] Medical Notes Date/Time Note Provider Source 2024-06-27 14:00:00 Pt discharged with diagnosis of pneumonia of R lung due to infectious organism, CP, elevated D-Dimer, acute cystitis with hematuria, and HTN. Printed and verbal instructions reviewed with and given to pt. Prescriptions given x 4. Pt verbalized understanding of teaching, medication, and recommended follow-up. Denies questions or concerns at this time. Pt ambulatory at discharge. Appears in no apparent distress. No ataxia noted. Lina Garcia RN [facility] 2024-06-27 11:42:07 Pt returned to room from CT. Ashley La RN [facility] 2024-06-27 10:59:40 Report handed over to CHLOE Ramirez. Kandice Bettencourt RN [facility] 2024-06-27 09:36:50 CC: patient presents to the ER with complaints of mid-sternal chest pain that began yesterday around 0900. Patient states she was seen and admitted in Ward for the same symptoms. Awake, alert, oriented, resp reg unlabored, skin warm and dry, color appropriate for race, moves all ext without difficulty, amb without assistance. Appears in no distress. Lisa Richards RN [facility] 2023-11-25 18:28:49 Pt given printed and verbal discharge instructions regarding acute conjunctivitis, encouraged hydration, 1 Prescription sent with patient Discussed antibiotic therapy and to take until all completed unless adverse reaction occurs - if occurs, discontinue medication and follow up with pcp/seek medical attention Pt verbalized understanding of instructions, pt awake alert oriented, resp reg unlabored, skin w/d, color appropriate for race, moves all ext well,pt encouraged to follow up with pcp Advised to seek medical attention for new/prolonged/worsening of symptoms, No adverse reaction to meds given in ER noted upon discharge Awake, alert oriented, resp reg unlabored, skin w/d, pt leaving ambulatory without assist, in no apparent distress, Subhash Muir RN [facility] 2023-11-25 17:39:14 Patient on phone during triage, attempting to advise patient to take blood pressure medication due to high blood pressure readings. [facility] 2023-11-25 17:30:58 CC: patient presents to the ER with complaints of right sided eye pain that began Sunday. Patient states she was diagnosed with cellulitis by [facility] yesterday. Patient states she began antibiotics that the hospital prescribed yesterday. Awake, alert, oriented, resp reg unlabored, skin warm and dry, color appropriate for race, moves all ext without difficulty, amb without assistance. Appears in no distress. Lisa Richards RN [facility] 2023-11-25 17:23:00 [facility] Emergency Department Note Patient Name: Sudhakar Wade Date of : 1990 33 year old female Treatment Room: Room/bed info not found Primary Care Physician: No primary care provider on file. 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 treatment: Antibiotic RETAIL BAKERY MANAGER treatment comments: Amoxicillin and azithromycin Travel and Exposure Screening: Symptoms Does patient have any of these symptoms?: (not recorded) Exposure Screening Has patient had contact with someone with a communicable disease in the last month?: (not recorded) Diseases exposed to:: (not recorded) Is Patient ?: (not recorded) Exposure Date: (not recorded) Chief Complaint: Chief Complaint Patient presents with Eye Pain Right History of Present Illness: Very pleasant lady presents for 7 days of bilat eye discharge starting on right side first; on cipro gtt for past five days, seen yesterday at [facility] and started on erythromycin oral tablets. Denies fever, trauma. Associated w/ congestion. History provided by: Patient Past Medical History/Immunizations: Past Medical History: Diagnosis Date Hypertension 2016 [facility] Noncompliance with medication regimen Trichomonal vulvovaginitis 07/15/2020 Tetanus received in last 5 years: No Allergies: No Known Allergies Past Social History: Tobacco Use Every Day; Cigarettes: Started 2006; 0.5 packs/day; Smoked an average of 0.5 packs/day for 18.7 years Smokeless Tobacco: Never used smokeless tobacco. Alcohol Use Not Currently. Drug Use Not Currently. Sexual Activity Sexually active; Partners: Male; Control/Protection: None. Comments: Last intercourse: 06/30/2020 Past Surgical History: Past Surgical History: Procedure Laterality Date SECTION 2018 TUBAL LIGATION 2017 Review of Systems: Review of Systems Constitutional: Negative for activity change, appetite change, chills, diaphoresis, fatigue and fever. HENT: Negative for congestion, ear discharge, ear pain, facial swelling, hearing loss, sore throat, tinnitus, trouble swallowing and voice change. Eyes: Positive for discharge and redness. Negative for photophobia, pain, itching and visual disturbance. Respiratory: Negative for apnea, cough, choking, chest tightness, shortness of breath and stridor. Breasts: Negative for discharge. Cardiovascular: Negative for chest pain, palpitations and leg swelling. Gastrointestinal: Negative for abdominal distention, abdominal pain, blood in stool, diarrhea, nausea and vomiting. Genitourinary: Negative for dysuria, frequency, hematuria, flank pain, enuresis and difficulty urinating. Musculoskeletal: Negative for arthralgias, back pain, gait problem, joint swelling, myalgias, neck pain and neck stiffness. Skin: Negative for color change, pallor, rash and wound. Neurological: Negative for dizziness, syncope, facial asymmetry, speech difficulty, weakness, light-headedness and headaches. Psychiatric/Behavioral: Negative for agitation, confusion, hallucinations and self-injury. The patient is not nervous/anxious. Hematological: Negative for adenopathy, cold intolerance and heat intolerance. Does not bruise/bleed easily. Endocrine: Negative for cold intolerance, heat intolerance, polydipsia and polyphagia. Physical Exam: ED Triage Vitals Weight 11/25/23 1732 145.2 kg (320 lb) Actual or estimated 11/25/23 1732 Estimated by patient/family report Height 11/25/23 1732 1.676 m (5' 6") BP 11/25/23 1733 (!) 176/126 Pulse 11/25/23 1732 115 Resp 11/25/23 1732 18 Temp 11/25/23 1732 37 ?C (98.6 ?F) Temp source 11/25/23 1732 Oral SpO2 11/25/23 173 99 % Measured on 11/25/23 1732 Room air Physical Exam Constitutional: General: She is not in acute distress. Appearance: She is well-developed. She is not ill-appearing, toxic-appearing or diaphoretic. HENT: Head: Normocephalic and atraumatic. Right Ear: External ear normal. Left Ear: External ear normal. Eyes: General: No scleral icterus. Right eye: Discharge present. Left eye: Discharge present. Comments: No pain w/ ROM; bilat conj R > L; small amount russo discharge and medial corner right eye Neck: Trachea: No tracheal deviation. Cardiovascular: Rate and Rhythm: Normal rate and regular rhythm. Heart sounds: Normal heart sounds. Pulmonary: Effort: Pulmonary effort is normal. No respiratory distress. Breath sounds: Normal breath sounds. No stridor. No wheezing or rales. Abdominal: General: There is no distension. Palpations: Abdomen is soft. Tenderness: There is no abdominal tenderness. There is no guarding. Musculoskeletal: General: No tenderness or deformity. Normal range of motion. Cervical back: Normal range of motion and neck supple. Skin: General: Skin is warm. Coloration: Skin is not pale. Findings: No erythema or rash. Neurological: General: No focal deficit present. Mental Status: She is alert and oriented to person, place, and time. Motor: No abnormal muscle tone. Psychiatric: Behavior: Behavior normal. Radiology: No orders to display Lab Results: Lab Results - No data to display EKG: If EKG completed, see Procedure Note. Orders and Treatments: Orders Placed This Encounter Procedures POCT Test POCT Test Orders Placed This Encounter Medications proparacaine (ALCAINE) 0.5 % ophthalmic solution 2 Drop fluorescein (FUL-CHARLEEN) ophthalmic strip 1 Strip olopatadine 0.1 % ophthalmic solution First Provider Eval: ED Events Date/Time Event User Comments 11/25/231722 Medical Screening Begins AMBROSE FINN MD -- 11/25/231722 First Provider Evaluation AMBROSE FINN MD -- ED COURSE Diagnosis/Impression as of 11/25/231823 Pain of both eyes Acute conjunctivitis of both eyes, unspecified acute conjunctivitis type Procedures: Procedures MDM: Medical Decision Making DDx incl viral conjuctivitis, bacterial conjunctivitis, corneal abrasion, corneal ulcer, iritis, et al D/w pt results, rec plan of care, red flags for return, and need to see EYE DOCTOR in 1-2 days. Amount and/or Complexity of Data Reviewed Labs: ordered. Risk Prescription drug management. Flowsheet Documentation: Disposition/Condition: ED Disposition ED Disposition Disch - Home Condition Stable Comment -- Discharge Medications: Patient's Medications START taking these medications OLOPATADINE 0.1 % OPHTHALMIC SOLUTION Place 1 Drop in both eyes in the morning and 1 Drop in the evening. CONTINUE taking these medications which have NOT CHANGED AMLODIPINE 5 MG TABLET Take 5 mg by mouth daily. CLONIDINE HCL ORAL Take by mouth. START taking Modified Medications as Prescribed No medications on file STOP taking these medications No medications on file Follow-up: Contact information for follow-up [facility], [facility] Specialty: Ophthalmology [facility] [address] Instructions: As needed Electronically signed by: Ambrose Finn MD 11/25/231823 [facility]
--- NOTE | 2024-12-02 17:28 | RAD REPORT ---
EXAM: Chest Single View HISTORY: 34 years Female COUGH COMPARISON: 11/19/2024 FINDINGS: LUNGS/PLEURA: The lungs are clear. No pleural effusions or pneumothorax. No pulmonary edema. CARDIAC/MEDIASTINUM: The cardiac silhouette is within normal limits. UPPER ABDOMEN: No significant abnormality. BONES: No acute abnormality. LINES/TUBES/OTHER: N/A IMPRESSION: No evidence of acute cardiopulmonary disease.
[2024-12-02 18:09] LABS: Influenza A Ag Negative; Influenza B Ag Negative; SARS-CoV-2 Antigen Rapid Res Negative (Negative)
--- NOTE | 2024-12-02 18:22 | EDPHYS ---
Physician Documentation [facility] Name: Sudhakar Duong Age: 34 yrs Sex: Female : 1990 Arrival Date: 12/02/2024 Time: 16:29 Bed 8 Private MD: ED Physician Arvind Calabrese HPI: 12/02 17:27 This 34 yrs old Black Female presents to ER via Ambulatory with complaints of Cough, kb Body aches. 17:27 Pt is a 34 year old female who presents for cough, congestion and bodyaches that kb started 2 weeks ago. States she was seen here a week ago and hasn't gotten any better. . Historical: - Allergies: 16:35 No Known Drug Allergies; ll1 - PMHx: 16:35 Hypertension; ll1 - PSHx: 16:35 tubal; ll1 - Immunization history:: Adult Immunizations up to date. - Infectious Disease History:: Denies. - Social history:: Smoking status: Patient reports the use of cigarette tobacco products, smokes one-half pack cigarettes per day. ROS: 17:28 Constitutional: As per HPI kb Exam: 17:28 Constitutional: This is a well developed, well nourished patient who is awake, alert, kb and in no acute distress. Head/Face: Normocephalic, atraumatic. ENT: Moist Mucous membranes Cardiovascular: Regular rate Respiratory: Respirations even and unlabored. No increased work of breathing. Talking in full sentences Skin: Warm, dry with normal turgor. Normal color. MS/ Extremity: Pulses equal, no cyanosis. Neurovascular intact. Full, normal range of motion. Neuro: Awake and alert, GCS 15, oriented to person, place, time, and situation. Vital Signs: 16:37 BP 142 / 96; Pulse 127; Resp 22; Temp 98.6; Pulse Ox 100% on R/A; Weight 158.76 kg; ll1 Height 5 ft. 6 in. ; Pain 10/10; 18:21 Pulse 116; Pulse Ox 96% on R/A; ap3 19:12 BP 137 / 91; Pulse 97; Resp 20; Temp 98.4; Pulse Ox 97% on R/A; dd2 16:37 Body Mass Index 56.49 (158.76 kg, 167.64 cm) ll1 16:37 Pain Scale: Adult ll1 MDM: 16:32 Medical Screening Exam initiated kb 18:10 Data reviewed: vital signs, nurses notes. kb 18:11 Differential Diagnosis: Influenza Upper Respiratory Infection Pneumonia Other kb sinusitis. Counseling: I had a detailed discussion with the patient and/or guardian regarding the historical points, exam findings, and any diagnostic results supporting the discharge/admit diagnosis, lab results, radiology results, the need for outpatient follow up, a family practitioner, to return to the emergency department if symptoms worsen or persist or if there are any questions or concerns that arise at home. 12/02 16:37 Order name: COVID-19 Ag + Flu A+B Ag; Complete Time: 18:09 kb 12/02 16:37 Order name: Group A Streptococcus Rapid; Complete Time: 18:00 kb 12/02 18:02 Order name: Throat Culture EDCT 12/02 16:37 Order name: Chest Single View XRAY; Complete Time: 17:29 kb 12/02 18:10 Order name: Vital Signs; Complete Time: 18:21 kb Administered Medications: 18:49 Drug: Dexamethasone IM 10 mg IM once Route: IM; Site: right ventrogluteal; dd2 19:14 Follow up: Response: No adverse reaction dd2 Disposition Summary: 12/02/24 18:21 Discharge Ordered Notes: Location: Home kb Condition: Stable kb Diagnosis - Acute sinusitis, unspecified kb Followup: kb - With: Emergency Department - When: As needed - Reason: Worsening of condition Followup: kb - With: Private Physician - When: 2 - 3 days - Reason: Recheck today's complaints, Continuance of care, Re-evaluation by your physician Discharge Instructions: - Discharge Summary Sheet kb - Sinusitis, Adult, [id number] kb Forms: - Medication Reconciliation Form kb - Antibiotic Education kb - Prescription Opioid Use kb - Patient Portal Instructions kb - Leadership Thank You Letter kb Prescriptions: - Augmentin 875-125 mg Oral Tablet - take 1 tablet ORAL route every 12 hours for 10 days; 20 tablet; Refills: 0, kb Product Selection Permitted - Prednisone 20 mg Oral Tablet - take 1 tablet ORAL route once daily for 5 days; 5 tablet; Refills: 0, Product kb Selection Permitted - Tessalon Perles 100 mg Oral Capsule - take 1 capsule ORAL route every 8 hours As needed; 15 capsule; Refills: 0, kb Product Selection Permitted Signatures: Dispatcher [employer] EDMS Nadeen Lorenzo, Teo Mendoza RN RN ll1 MARILOU THRASHER RN RN dd2 Corrections: (The following items were deleted from the chart) 16:37 16:37 COVID-19 Ag + Flu A+B Ag+I.LAB.BRZ ordered. EDMS EDMS 16:37 16:37 Group A Streptococcus Rapid Sc+I.LAB.BRZ ordered. EDMS EDMS 16:37 16:37 Chest Single View+RAD.RAD.BRZ ordered. EDMS EDMS
--- NOTE | 2024-12-02 18:22 | ER ---
Nurse's Notes [facility] Name: Sudhakar Duong Age: 34 yrs Sex: Female : 1990 Arrival Date: 12/02/2024 Time: 16:29 Bed 8 Private MD: Diagnosis: Acute sinusitis, unspecified Presentation: 12/02 16:34 Chief complaint: Patient states: Cough, body aches and just not getting better. Here ll1 last week for same. Coronavirus screen: Client denies travel out of the [place] in the last 14 days. Coronavirus screen: congestion, cough unrelated to allergies, difficulty breathing, fatigue. Ebola Screen: Patient denies travel to an Ebola-affected area in the 21 days before illness onset. Initial Sepsis Screen: Does the patient meet any 2 criteria? No. Patient's initial sepsis screen is negative. Does the patient have a suspected source of infection? No. Patient's initial sepsis screen is negative. Risk Assessment: Do you want to hurt yourself or someone else? Patient reports no desire to harm self or others. Onset of symptoms was November 18, 2024. 16:34 Method Of Arrival: Ambulatory ll1 16:34 Acuity: NEMESIO 3 ll1 Triage Assessment: 16:40 General: Appears distressed, uncomfortable, Behavior is calm, cooperative, appropriate ll1 for age. Pain: Complains of pain in all over Pain currently is 10 out of 10 on a pain scale. EENT: Reports nasal congestion pain when swallowing. Neuro: Reports headache weakness. Respiratory: Reports shortness of breath cough that is. Musculoskeletal: Reports pain all over. Historical: - Allergies: 16:35 No Known Drug Allergies; ll1 - PMHx: 16:35 Hypertension; ll1 - PSHx: 16:35 tubal; ll1 - Immunization history:: Adult Immunizations up to date. - Infectious Disease History:: Denies. - Social history:: Smoking status: Patient reports the use of cigarette tobacco products, smokes one-half pack cigarettes per day. Screenin:42 [facility] ED Fall Risk Assessment (Adult) History of falling in the last 3 months, dd2 including since admission No falls in past 3 months (0 pts) Confusion or Disorientation No (0 pts) Intoxicated or Sedated No (0 pts) Impaired Gait No (0 pts) Mobility Assist Device Used No (0 pt) Altered Elimination No (0 pt) Score/Fall Risk Level 0 - 2 = Low Risk Oriented to surroundings, Maintained a safe environment, Educated pt \T\ family on fall prevention, incl call for assistance when getting out of bed, Assessed \T\ reinforced patient's understanding of fall precautions, Hourly rounding (assess needs \T\ fall precautionary measures) done. Abuse screen: Denies threats or abuse. Denies injuries from another. Nutritional screening: No deficits noted. Tuberculosis screening: No symptoms or risk factors identified. Assessment: 18:42 General: Appears in no apparent distress. Behavior is calm, cooperative, appropriate dd2 for age. Pain: Complains of pain in chest Aggravated by COUGHING. Neuro: No deficits noted. Cardiovascular: Reports chest pain, WHEN COUGHING Patient's skin is warm and dry. Respiratory: Reports shortness of breath at rest on exertion cough that is pain with cough Airway is patent Respiratory effort is even, unlabored, Respiratory pattern is regular, symmetrical, Breath sounds are clear bilaterally. the patient has mild shortness of breath. GI: No deficits noted. No signs and/or symptoms were reported involving the gastrointestinal system. : No deficits noted. No signs and/or symptoms were reported regarding the genitourinary system. EENT: Nares are clear Reports nasal congestion. Derm: No deficits noted. No signs and/or symptoms reported regarding the dermatologic system. Musculoskeletal: No deficits noted. No signs and/or symptoms reported regarding the musculoskeletal system. Circulation, motion, and sensation intact. Range of motion: intact in all extremities. Vital Signs: 16:37 BP 142 / 96; Pulse 127; Resp 22; Temp 98.6; Pulse Ox 100% on R/A; Weight 158.76 kg; ll1 Height 5 ft. 6 in. ; Pain 10/10; 18:21 Pulse 116; Pulse Ox 96% on R/A; ap3 19:12 BP 137 / 91; Pulse 97; Resp 20; Temp 98.4; Pulse Ox 97% on R/A; dd2 16:37 Body Mass Index 56.49 (158.76 kg, 167.64 cm) ll1 16:37 Pain Scale: Adult ll1 ED Course: 16:31 Patient arrived in ED. mr 16:31 Nadeen Lorenzo, JESSE is PHCP. kb 16:32 Arvind Calabrese MD is Attending Physician. kb 16:34 Arm band placed on. ll1 16:35 Triage completed. ll1 17:21 Chest Single View XRAY In Process Unspecified. EDMS 18:42 Patient has correct armband on for positive identification. Bed in low position. Call dd2 light in reach. Side rails up X 1. Client placed on continuous cardiac and pulse oximetry monitoring. NIBP monitoring applied. Door closed. Noise minimized. Pillow given. Verbal reassurance given. 18:42 No provider procedures requiring assistance completed. Patient did not have IV access dd2 during this emergency room visit. Patient maintains SpO2 saturation greater than 95% on room air. 19:13 Provided Education on: D/C EDUCATION. dd2 Administered Medications: 18:49 Drug: Dexamethasone IM 10 mg IM once Route: IM; Site: right ventrogluteal; dd2 19:14 Follow up: Response: No adverse reaction dd2 Medication: 18:42 VIS not applicable for this client. dd2 Outcome: 18:21 Discharge ordered by . kb 19:13 Discharged to home ambulatory, dd2 19:13 Condition: stable 19:13 Discharge instructions given to patient, Instructed on discharge instructions, follow up and referral plans. medication usage, Demonstrated understanding of instructions, follow-up care, medications, Prescriptions given X 3, 19:14 Patient left the ED. dd2 Signatures: Dispatcher [employer] EDMS Nadeen Lorenzo, MEAT BUTCHER-C MEAT BUTCHER-CkAngella Mukherjee, Reg Reg mr ChinRachel, RN CHLOE [email or web address] Teo Pryor RN RN ll1 MARILOU THRASHER RN RN dd2
[2024-12-02 19:38] VITALS: BP 137/91
[2024-12-02 19:41] VITALS: TEMP 97.1
[2024-12-02 19:43] VITALS: O2SAT 99
== END 2024-12-02 19:14 | disposition home or self-care (01) ==
LOC: ER 16:29
DX: J01.90 Acute sinusitis, unspecified (principal); F17.210 Nicotine dependence, cigarettes, uncomplicated; Z11.52 Encounter for screening for COVID-19
CPT/HCPCS: 36415; 71045; 87070; 87428; 96372; 99284; J1100